=== PATIENT | female | born 1985 | race Caucasian/White ===

== ENCOUNTER 2022-06-17 09:56 | Emergency (ER) | payer OTHER, SELFPAY ==
--- NOTE | ~2022-06-17 | XR_ITS ---
EXAMINATION: XR RIBS, RIGHT CLINICAL INFORMATION: Right rib bruising status post fall on Monday. COMPARISON: None available. TECHNIQUE: 3 views of the right ribs were obtained. FINDINGS: Lungs are clear. No consolidation, pneumothorax, or pleural effusion. The cardiomediastinal silhouette and pulmonary vasculature are normal. Osseous structures are unremarkable. Ribs are intact. No fractures are identified. XR/XR ribs RT min 3V w CXR1V IMPRESSION: Unremarkable examination.
[2022-06-17 10:06] VITALS: BP 132/93; PULSE 102; RESP 18; TEMP 36.6; O2SAT 98; BMI 30.1
--- NOTE | 2022-06-17 10:41 | ED_ITS ---
HPI - Back Pain/Injury General Chief Complaint: Back Pain/Injury Stated Complaint: low back pain Time Seen by Provider: 06/17/22 10:21 Source: patient Mode of arrival: ambulatory Limitations: no limitations History of Present Illness HPI Narrative: 37 yo female healthy here with right posterior chest wall after bumping into a door on Monday. Since then pain is worsened with breathing, movement, coughing. No SOB, cough, fever, abdominal pain, vomiting. Prior to this she was having some back discomfort for weeks with no known injury or trauma. No radiation of pain. No numbness/tingling/weakness/incontinence of urine/stool, fevers, chills. MD elicited complaint: back pain Related Data Previous Rx's Medication Instructions Recorded cyclobenzaprine 10 mg tablet 10 mg PO TID PRN muscle spasm #10 06/17/22 tabs ibuprofen 600 mg tablet 600 mg PO Q6H PRN fever or pain 06/17/22 #20 tabs Allergies Allergy/AdvReac Type Severity Reaction Status Date / Time No Known Allergies Allergy Verified 06/17/22 10:06 Review of Systems Review of Systems: Yes all other systems are reviewed and are negative Constitutional: Constitutional: Reports no additional constitutional complaints, Denies body ache(s), Denies chills, Denies fever(s), Denies headache(s) and Denies weakness Eyes: Eyes: Reports no additional eye complaints and Denies change in vision ENT: Reports system reviewed and no additional complaints, except as documented, Denies dizziness, Denies headache(s), Denies nasal congestion, Denies nasal discharge and Denies neck pain Cardiovascular: Cardiovascular: Reports no additional cardiovascular compla ints, Reports chest pain, Denies leg edema and Denies dyspnea Respiratory: Respiratory: Reports no additional respiratory complaints, Denies cough and Denies dyspnea Gastrointestinal: Gastrointestinal: Reports no additional gastrointestinal complaints, Denies abdominal pain, Denies diarrhea, Denies nausea and Denies vomiting Genitourinary: Genitourinary: Reports no additional female genitourinary complaints and Denies urinary incontinence Musculoskeletal: Musculoskeletal: Reports no additional musculoskeletal complaints, Reports back pain, Denies arthralgias, Denies joint swelling, Denies neck pain, Denies numbness and Denies tingling Integumentary/Breasts: Skin/Breast: Reports system reviewed and no additional complaints, except as docu and Denies rash Neurologic: Reports system reviewed and no additional complaints, except as documented, Denies Abnormal speech present, Denies dizziness, Denies headache(s), Denies numbness, Denies tingling and Denies weakness PMFSH Past Medical History Attestation statement: The following information was validated with the patient. Source: old records reviewed and nursing notes reviewed Social History Social History Advance Directives: No Advance Directives Information Provided: No Physical Exam Vital Signs: Vital Signs: Last Vital Signs Temp 97.8 F 06/17/22 10:06 Pulse 102 H 06/17/22 10:06 Resp 18 06/17/22 10:06 BP 132/93 H 06/17/22 10:06 Pulse Ox 98 06/17/22 10:06 O2 Del Method Room Air 06/17/22 10:06 BMI result Body Mass Index 30.1 Const: General: cooperative, healthy appearing, comfortable and no acute distress Orientation/consciousness: patient oriented x3 Limitations: no limitations HEENT: Head: Yes normal to inspection Ears: hearing grossly normal bilaterally General nose exam: Normal external nose present Face and sinus: Yes normal facial exam Mouth: Normal oral and palatal mucosa present Throat: Yes posterior oropharynx normal Eyes: General: appearance normal, both eyes and all related structures Pupils: Equal, round and reactive pupils present Neck: Neck: Yes normal visual inspection Chest: Other: to the right posterior chest wall there is a small area of ecchymosis in various stages of healing with mild TTP over the chest wall. No CVAT Resp: Effort & Inspection: normal respiratory effort Auscultation: clear to auscultation bilaterally Cardio: Rate: regular rate Rhythm: regular rhythm Peripheral pulses: Peripheral pulses 2+ throughout GI: Inspection: Yes normal to inspection Palpation (GI): Soft to palpation and nontender Auscultation: normal bowel sounds Back/Spine/Pelvis: Thoracic/Lumbar Spine: thoracic and lumbar spine normal to inspection Skin: General skin exam: no rashes or lesions noted Neuro: General: patient oriented x3, no focal motor deficits and normal sensation to monofilament Cranial nerves: Yes Equal, round and reactive pupils present Cognition (Neuro): normal cognition Speech: No Abnormal speech present Gait exam (Neuro): Normal gait present Motor exam (neuro): 5/5 motor strength present throughout Extrem: General: Yes normal to inspection Course Course Course Narrative: X-ray show no fracture. Likely contusion. Patient be discharged home with NSAID and muscle relaxant. Reviewed worrisome signs and symptoms of when to return to the emergency room. Comfortable discharge home. Medical Decision Making Medical Decision Making [facility] Narrative: 37 yo female here with acute on chronic back pain/rib pain after an injury which occurred Monday. On exam ecchymosis over the right posterior chest wall with no creptitus or deformity noted. LS CTA. VSS. No AP or CVAT Will check x-rays Differential Diagnosis Differential Diagnoses: The differential diagnosis associated with the presentation includes MS, rib fracture/contusion less likely intra-abdominal injury, renal injury, PTX Independent Interpretation I performed an independent interpretation of an: Plain X-Ray Interpretation: I independently reviewed the x-ray and agree with radiologist report Radiology Impression Discussion of test interpretation with radiology: I have reviewed the radiologist's reading. Radiologist Impression: [place] [id number] XRay Report Signed Patient: Mellissa Gibson MR#: [id number] : 1985 Acct:[id number] Age/Sex: 37 / F ADM Date: 06/17/22 Loc: HO.ED Attending Dr: Ordering Physician: Trudi Daugherty MD Date of Service: 06/17/22 Procedure(s): XR ribs RT min 3V w CXR1V Accession Number(s): [id number] cc: Trudi Daugherty MD~ EXAMINATION: XR RIBS, RIGHT CLINICAL INFORMATION: Right rib bruising status post fall on Monday. COMPARISON: None available. TECHNIQUE: 3 views of the right ribs were obtained. FINDINGS: Lungs are clear. No consolidation, pneumothorax, or pleural effusion. The cardiomediastinal silhouette and pulmonary vasculature are normal. Osseous structures are unremarkable. Ribs are intact. No fractures are identified. XR/XR ribs RT min 3V w CXR1V IMPRESSION: Unremarkable examination. ? Discharge Plan Discharge Clinical Impression: Contusion of rib on right side Patient Disposition: Home, Self-Care Instructions: Contusion in Adults (ED), Rib Contusion (ED) Additional Instructions: Rest, ice, gentle stretching No heavy lifting or bending Establish a primary care doctor through your insurance company Prescriptions: New ibuprofen 600 mg tablet 600 mg PO Q6H PRN (Reason: fever or pain) Qty: 20 0RF cyclobenzaprine 10 mg tablet 10 mg PO TID PRN (Reason: muscle spasm) Qty: 10 0RF Referrals: Physician,None [Primary Care Provider] - 1 week Stand Alone Forms: Work/School Release Interventions: ED Discharge Assessment Last Done: 06/17/22 11:43 Discharge Date/Time: 06/17/22 11:45
== END 2022-06-17 11:45 | disposition home or self-care (01) ==
PROVIDERS: Emergency Provider Student in an Organized Health Care Education/Training Program
DX: R07.81 Pleurodynia (principal); M94.0 Chondrocostal junction syndrome [Tietze]; M54.50 Low back pain, unspecified
CPT/HCPCS: 71101; 99282; 99283

== ENCOUNTER 2024-08-20 10:29 | Outpatient (AMB) | payer BC, SELFPAY ==
--- NOTE | 2024-08-20 10:29 | A.OFFPC_ITS ---
Vital Signs 08/20/24 10:31 Height 5 ft 3.39 in Weight 151 lb BMI 26.4 BP 132/85 Respiration 14 Pulse 91 Pulse Source Pulse Oximeter Temp 97.7 F Temp Source Temporal Artery Scan Pulse Oximetry (%) 98 Oxygen Delivery Method Room Air Intake Visit Reasons: establish care; pilonidal cyst Efficiency Clerk Required: No Accompanied by: Self / Same As Patient Allergies No Known Allergies Allergy (Verified 08/20/24 10:44) Medication List - Last Reconciled 08/20/24 by Jenny Bustillo PA-C cephalexin 500 mg PO QID gabapentin mg PO ibuprofen 600 mg PO Q6H PRN lamotrigine 150 mg PO BID Tobacco use date assessed: 08/20/24 Dental Screening Dental Screen Date: 08/20/24 Did you have a dental visit in the last 12 months?: Yes Did you have a dental problem in the last 6 months where you did not have access to dental care?: No Was dental information given to patient?: Patient has dentist HPI establish care; pilonidal cyst HPI Details The patient is a 39-year-old female presenting to establish primary care and manage a recent pilonidal cyst. The cyst was initially treated by incision and drainage at a [facility] in [place]. Follow-up visits revealed the necessity for deeper incision and debridement, and the area has been managed for approximately one week. Despite interventions, the patient expressed concern over the wound's proximity to the spine. Recommended referral to a wound center is underway to facilitate healing. Social History - No regular primary care since [facility] due to lack of insurance. - Recent wound management has involved a ssistance from a partner. [facility] Medical History (Updated 08/20/24 @ 11:16 by Jenny Bustillo PA-C) Overweight with body mass index (BMI) of 26 to 26.9 in adult Pilonidal cyst Establishing care with new doctor, encounter for Breast cancer screening Cervical cancer screening Family History Father Throat cancer Mother No problems noted. Social History Housing: House Alcohol intake: current Alcohol intake frequency: a few times a week Alcohol type: beer Patient Tobacco Use Status: Never used Tobacco Substance Use Type: Crack/Cocaine service: No Current occupational status: employed Cognitive needs: No Hearing needs: No Vision needs: Yes (rx glasses) Questionnaire PHQ-9 Over the last 2 weeks, how often have you been bothered by any of the following problems? 1. Little interest or pleasure in doing things: not at all 2. Feeling down, depressed, or hopeless: not at all 3. Trouble falling or staying asleep, or sleeping too much: not at all 4. Feeling tired or having little energy: not at all 5. Poor appetite or overeating: not at all 6. Feeling bad about yourself - or that you are a failure or have let yourself or your family down: not at all 7. Trouble concentrating on things, such as reading the newspaper or watching television: not at all 8. Moving or speaking so slowly that other people could have noticed. Or the opposite - being so fidgety or restless that you have been moving around a lot more than usual: not at all 9. Thoughts that you would be better off or of hurting yourself in some way: not at all Total score: 0 Depression Screening Interpretation: Negative Depression Screening Done: Yes 33358 - PHQ-9 Billing: Yes Source: Developed by Drs. Julius Maria, Evelyn Dalton, René Farnsworth and colleagues, with an educational van from [employer]. Thrive Questionnaire Date Thrive assessed: 08/20/24 I am a: Patient What is your living situation today?: I have a steady place to live Within the past 12 months, did the food you bought not last and you didn't have the money to get more?: Never true Within the past 12 months, did you worry whether your food would run out before you got money to buy more?: Never true Do you have trouble paying for medicines?: No Do you have trouble getting transportation to medical appointments?: No Do you have trouble paying your heating and electricity bill?: No Do you have trouble taking care of your child, family member or friend?: No Do you have trouble with day-to-day activities such as bathing, preparing meals, shopping, managing finances, etc.?: No Are you currently unemployed and looking for a job?: No Are you interested in more education?: No Please select the resources that you would like help with: None THRIVE Score: 0 AUDIT C Alcohol Use Questionnaire (AUDIT-C) 1. How often do you have a drink containing alcohol?: 4 or more times a week 2. How many drinks containing alcohol do you have on a typical day when you are drinking?: 1 or 2 3. How often do you have six or more drinks on one occasion?: Never Total Score: 4 Score Reviewed/Action Taken: No CHARLES-7 AMB Questionnaire CHARLES-7 Date CHARLES - 7 assessed: 08/20/24 Feeling nervous, anxious, or on edge: 0 = Not at all Not being able to stop or control worryin = Not at all Worrying too much about different things: 0 = Not at all Trouble relaxin = Not at all Being so restless that it is hard to sit still: 0 = Not at all Becoming easily annoyed or irritable: 0 = Not at all Feeling afraid as if something awful might happen: 0 = Not at all Total CHARLES-7 score (0-4 normal; 5-9 mild; 10-14 moderate; 15-21 severe): 0 Source: Developed by Drs. Julius Maria, Evelyn Dalton, René Farnsworth and colleagues, with an educational van from [employer]. CHARLES-7 Assessment Billing CHARLES-7 Assessment Tool: CHARLES-7 Assessment 37694 Review of Systems Const Details: - Skin: Reports a pilonidal cyst, with issues related to wound packing and potential infection. - No other symptoms reported or denied. Physical exam (Primary Care) Vital Signs: Last Vital Signs Temp 97.7 F 08/20/24 10:31 Pulse 126 H 08/20/24 10:31 Resp 14 08/20/24 10:31 BP 132/85 08/20/24 10:31 Pulse Ox 98 08/20/24 10:31 Oxygen Delivery Method Room Air 08/20/24 10:31 Care Plan Goal for BP management: <140/90 at Goal BMI result Body Mass Index 26.4 BMI Assessment/Plan discussion: High BMI High, discussed plan: lifestyle, weight reduction, dietary, physical activity and alcohol moderation Tobacco/Smoking Status: Tobacco use Status Tobacco use date assessed 08/20/24 08/20/24 10:38 Patient Tobacco Use Status Never used Tobacco 08/20/24 10:38 PHQ-9: PHQ-9 Score PHQ-9: Total score 0 08/20/24 10:38 Depression Screening Interpretation: Negative Thrive Assessment: Date of Thrive Assessment Date Thrive assessed 08/20/24 08/20/24 10:38 Const Other: Appearance: Alert. Oriented X3. No acute distress. Head: Normal external exam. Normocephalic. Atraumatic. Eyes: Pupils are equal, round, and reactive to light. Extraocular movements intact. Conjunctiva and sclera normal. Eyelids normal. Ears: External auditory canal normal. Tympanic membranes normal. Throat: Pharynx normal. Uvula midline. Moist mucous membranes. Neck: Normal inspection. Neck supple. Full range of motion. No adenopathy. Thyroid Normal. No meningeal signs. No neck mass noted. Cardiovascular: Normal heart rate and rhythm. Heart sound normal. No murmurs noted. Pulses normal throughout. Respiratory: No respiratory distress. Painless inspiration. Breath sounds normal. No wheezes/rales/rhonchi noted. Chest nontender. No accessory muscle usage noted or decreased air movement noted. Abdomen: Soft and nontender. No distention noted. No organomegaly noted. Back: No costovertebral angle tenderness. Full range of motion noted. Skin: Skin warm and dry. Normal skin color. Normal skin turgor. Pilonidal wound to right buttocks. No advancing erythema, streaking, crepitus, purulent drainage, foul odor or signs of active infection. No additional rashes/lesions/lacerations noted. Extremities: No lower extremity edema. Extremities exhibit normal range of motion. Extremities nontender. Neuro: Oriented X 3. No motor deficit. No sensory deficit. Reflexes normal. Results Reviewed Results Reviewed: Pilonidal wound was cleaned with normal saline. Nonviable tissue, slough, biofilm was removed. Bacitracin ointment was applied. Nonadherent dressing with gauze overlying and tape applied. Coding Level of Care Code New Pt Level 4 (45975) Complex EM visit Add On G2211 Diagnoses Establishing care with new doctor, encounter for Z76.89 Pilonidal cyst L05.91 Breast cancer screening Z12.39 Cervical cancer screening Z12.4 Overweight with body mass index (BMI) of 26 to 26.9 in adult E66.3; Z68.26 Additional Codes PHQ-9 - 42807 - PHQ-9 Billing: Yes ([id number]) CHARLES-7 Assessment Billing - CHARLES-7 Assessment Tool: CHARLES-7 Assessment 11096 ([id number]) Time Spent (min) 50 Assessment & Plan Assessment & Plan (1) Establishing care with new doctor, encounter for: Code(s): Z76.89 - Persons encountering health services in other specified circumstances Category: Medical Plan: Establish primary care and complete overdue screenings including Pap smear and Mammogram. Complete fasting blood work for comprehensive health assessment. (2) Pilonidal cyst: Code(s): L05.91 - Pilonidal cyst without abscess Category: Medical Plan: Continue wound care, use antibiotic ointments, and refer to a wound center. Continue Keflex q.i.d. as prescribed by urgent Care. Maintain outpatient care to monitor and prevent recurrent infections by advising pressure relief strategies. (3) Breast cancer screening: Code(s): Z12.39 - Encounter for other screening for malignant neoplasm of breast Category: Medical Plan: Patient will be referred for mammogram for breast cancer screening. (4) Cervical cancer screening: Code(s): Z12.4 - Encounter for screening for malignant neoplasm of cervix Category: Medical Plan: Patient will refer to biology department chair for cervical cancer screening. (5) Overweight with body mass index (BMI) of 26 to 26.9 in adult: Code(s): E66.3 - Overweight; Z68.26 - Body mass index [BMI] 26.0-26.9, adult Category: Medical Plan: Patient has improved diet and exercise regimen. Condition is chronic and stable continue to monitor. Plan Plan Patient was informed and verbally consented to the use of an ambient scribe for clinic note documentation during this visit. 1. Pilonidal Cyst Continue wound care, use antibiotic ointments, and refer to a wound center. Maintain outpatient care to monitor and prevent recurrent infections by advising pressure relief strategies. 2. Wellness And Preventative Care Establish primary care and complete overdue screenings including Pap smear and Mammogram. Complete fasting blood work for comprehensive health assessment. I discussed the management plan with the patient, focusing on the pilonidal cyst and the need for continued care at a wound center. We reviewed the risks of not managing the wound appropriately, including possible infection due to proximity to the spine. I emphasized the importance of pressure relief from the site and maintaining daily dressing changes. For wellness, the need for cervical and breast cancer screenings was discussed, along with the benefit of primary care follow-up. Orders: Orders C Reactive Protein Today Z00.00 - Encounter for general adult medical examination without abnormal findings Liver Panel Today Z00.00 - Encounter for general adult medical examination without abnormal findings Magnesium Today Z00.00 - Encounter for general adult medical examination without abnormal findings Vitamin B12 and Folate Today Z00.00 - Encounter for general adult medical examination without abnormal findings MM screening mammo BI Today Z12.31 - Encounter for screening mammogram for malignant neoplasm of breast Complete Blood Count Auto Diff Today Z00.00 - Encounter for general adult medical examination without abnormal findings Comprehensive [place]. Panel Fast Today Z00.00 - Encounter for general adult medical examination without abnormal findings Hemoglobin A1c Today Z00.00 - Encounter for general adult medical examination without abnormal findings Lipid Panel Today Z00.00 - Encounter for general adult medical examination w ithout abnormal findings Vitamin D 25-OH Total Today Z00.00 - Encounter for general adult medical examination without abnormal findings TSH reflex Free T4 Today Z00.00 - Encounter for general adult medical examination without abnormal findings Referrals Wound Care Referral L05.91 - Pilonidal cyst without abscess [employer] Referral Z12.39 - Encounter for other screening for malignant neoplasm of breast, Z12.4 - Encounter for screening for malignant neoplasm of cervix, Z76.89 - Persons encountering health services in other specified circumstances Medications: New mupirocin 2% 1 appl topical DAILY 22 grams 2RF Discontinued cyclobenzaprine Discontinued Reason: Patient no longer taking 10 mg PO TID PRN 10 tabs 0RF muscle spasm Patient Instructions: - Continue daily wound care with topical antibiotic ointment. - Avoid applying pressure on the wound by sitting or laying directly on it. - Contact the wound center for an appointment within a week. - Schedule and attend referrals for Pap smear and Mammogram. - Fast and complete blood tests as instructed. - Report any signs of infection or complications immediately.
[2024-08-20 10:31] VITALS: BP 132/85; PULSE 91; RESP 14; TEMP 36.5; O2SAT 98; BMI 26.4
== END 2024-08-20 11:13 | disposition home or self-care (01) ==
LOC: HO.HMCSH 10:29
PROVIDERS: PCP Physician Assistant Medical; Visit Provider Physician Assistant Medical
DX: Z76.89 Persons encountering health services in other specified circumstances (principal); L05.91 Pilonidal cyst without abscess; Z12.39 Encounter for other screening for malignant neoplasm of breast; Z12.4 Encounter for screening for malignant neoplasm of cervix; E66.3 Overweight; Z68.26 Body mass index [BMI] 26.0-26.9, adult

== ENCOUNTER → 2024-08-20 10:29 | Outpatient (BNVA) | payer BC, SELFPAY | PROVIDERS: PCP Physician Assistant Medical; Visit Provider Physician Assistant Medical | DX: L05.91 Pilonidal cyst without abscess (principal); E66.3 Overweight; Z68.26 Body mass index [BMI] 26.0-26.9, adult; Z76.89 Persons encountering health services in other specified circumstances | CPT/HCPCS: 96127 ==

== ENCOUNTER 2024-08-29 08:04 | Outpatient (RCR) | payer BC, SELFPAY | END 2024-09-16 13:55 | disposition home or self-care (01) | LOC: HO.WCC 08:04 | PROVIDERS: Visit Provider Surgery | DX: L05.91 Pilonidal cyst without abscess (principal); Z79.2 Long term (current) use of antibiotics | CPT/HCPCS: 99213 ==

== ENCOUNTER 2024-09-09 10:33 | Emergency (ER) | payer BC, SELFPAY ==
[2024-09-09 10:56] VITALS: BP 117/63; PULSE 81; RESP 18; TEMP 36.8; O2SAT 99; BMI 28.1
--- NOTE | 2024-09-09 12:52 | ED.GENADULT ---
HPI - General Adult General Chief complaint: Skin/Abscess/Foreign Body Stated complaint: quest abscess on abd Time Seen by Provider: 09/09/24 13:55 Source: patient, RN notes reviewed and old records reviewed History of Present Illness ED Provider: Elizabeth Downs PA-C HPI narrative: 39-year-old female with a past medical history pilonidal cyst, presenting to the ED complaining of suspected abscess to right abdominal region/side x few days and pilonidal cyst x 1 week. Admits was seen at urgent care about 1 month ago and had pilonidal cyst that was drained, finished course of Keflex with relief, however area recollected last week and open/popped on its own. Denies active drainage, fever, chills, difficulty having BUN, bloody BMs, dysuria, melena, abdominal pain Related Data Home Medications ?Medication ?Instructions ?Recorded ?Confirmed cephalexin 500 mg capsule 500 mg PO QID 08/20/24 08/20/24 gabapentin 100 mg capsule mg PO 08/20/24 08/20/24 lamotrigine 150 mg tablet 150 mg PO BID 08/20/24 08/20/24 Previous Rx's ?Medication ?Instructions ?Recorded ibuprofen 600 mg tablet 600 mg PO Q6H PRN fever or pain 06/17/22 #20 tabs mupirocin 2 % topical ointment 1 appl topical DAILY #22 grams 08/20/24 doxycycline hyclate 100 mg tablet 100 mg PO BID 7 days #14 tabs 09/09/24 Allergies Allergy/AdvReac Type Severity Reaction Status Date / Time No Known Allergies Allergy Verified 09/09/24 10:57 Review of Systems Review of Systems: Yes all other systems are reviewed and are negative Constitutional: Constitutional: Reports as per [facility] Past Medical History Attestation statement: The following information was validated with the patient. Source: old records reviewed Medical History Overweight with body mass index (BMI) of 26 to 26.9 in adult Pilonidal cyst Establishing care with new doctor, encounter for Breast cancer screening Cervical cancer screening Family History Family History Father Throat cancer Mother No problems noted. Social History Social History Housing: House Alcohol intake: current Alcohol intake frequency: a few times a week Alcohol type: beer Patient Tobacco Use Status: Never used Tobacco Substance Use Type: Crack/Cocaine Advance Directives: No Advance Directives Information Provided: Yes Patient : No service: No Current occupational status: employed Cognitive needs: No Hearing needs: No Vision needs: Yes (rx glasses) Physical Exam ED Vital Signs: Vital Signs - 24 hr 09/09/24 10:56 09/09/24 13:34 09/09/24 14:40 Temperature 98.3 F 98 F 98 F Pulse Rate 81 73 73 Respiratory Rate 18 14 14 Blood Pressure 117/63 140/84 H 140/84 H Pulse Oximetry 99 97 97 Oxygen Delivery Method Room Air Room Air Room Air BMI result Body Mass Index 28.1 Const General: cooperative, healthy appearing and no acute distress Orientation/consciousness: patient oriented x3 Limitations: no limitations HENMT Head: Yes normal to inspection and Yes atraumatic Ears: hearing grossly normal bilaterally General nose exam: Normal external nose present Face and sinus: Yes normal facial exam Eyes General: appearance normal, both eyes and all related structures EOM: EOMs intact bilaterally Neck Neck: Yes normal visual inspection and Yes no meningeal signs Resp Effort & Inspection: normal respiratory effort and no respiratory distress Cardio Rate: regular rate GI Inspection: Yes normal to inspection Palpation (GI): Soft to palpation, nontender, no guarding and not rigid General: Yes no CVA tenderness Back/Spine/Pelvis Back: no CVA tenderness Skin Other: + indurated abscess noted to RUQ/lower ribs w/surrounding erythema/cellulitis. Mildly tender to palpation. No pointing or fluctuance. No streaking. + multiple small healing abscesses/cyst to buttock region. One with small induration. No fluctuance/pointing. No surrounding erythema. No crepitus. No perianal/perirectal involvement. Rashes: no rashes Neuro General: patient oriented x3, tone normal and no meningeal signs Cranial nerves: Yes CN's II-XII intact bilaterally Gait exam (Neuro): Normal gait present Extrem General: Yes normal to inspection Course Course Course Narrative: RME performed by Hien Carr PA-C. Patient is a 39 year old assigned female at presenting to the emergency department with a right abdominal abscess, right sided pilonidal, and left sided groin abscess. Patient states that she is having issues with multiple abscesses that are worsening. Detailed physical exam and review of systems are deferred to the digital asset specialist. Labs ordered. Patient placed back in the waiting room pending room availability and results. -labs reassuring. Mild elevation in ESR/CRP Results discussed with patient including worrisome signs and symptoms and strict return precautions, and when to return to the emergency department. They verbalized understanding and feel safe for discharge at this time. Medical Decision Making Medical Decision Making [facility] Narrative: 39-year-old female with a past medical history pilonidal cyst, presenting to the ED complaining of suspected abscess to right abdominal region/side x few days and pilonidal cyst x 1 week. On exam vital signs stable, NAD, nontoxic appearing, physical exam as noted above. Abscesses not requiring I&D at this time. One with surrounding cellulitis, 2 with induration. No perianal/perirectal involvement, no evidence of Faisal's gangrene. Abdomen is soft and nontender. Plan: P.o. antibiotics, general surgery/PCP follow-up Please refer to course for remaining clinical decision making, interpretation of labs/imaging results, and discussions with consultants and/or family members. Differential Diagnosis Differential Diagnoses: The differential diagnosis associated with the presentation includes As above Admission/Observation Consideration of admission/observation: Escalation of care including admission/observation considered Lab Data [facility] Lab Attestation statement: I reviewed the patient's lab results. 09/09/24 13:16 09/09/24 13:16 Labs: Lab Results 09/09/24 Range/Units 13:16 WBC 11.2 H (4.8-10.8) X10*3/uL RBC 3.90 L (4.20-5.50) X10*6/uL Hgb 12.9 (12.0-16.0) g/dl Hct 37.4 (37.0-47.0) % MCV 95.9 (80.0-98.0) fL MCH 33.1 H (27.0-33.0) pg MCHC 34.5 (31.0-35.0) g/dl RDW 12.9 (11.0-16.0) % Plt Count 380 (160-400) X10*3/uL MPV 8.7 L (9.4-12.3) fL Immature Gran % (Auto) 0.4 (0.0-0.4) % Neut % (Auto) 67.5 (45-73) % Lymph % (Auto) 21.6 (20-40) % Bond % (Auto) 7.4 (2-11) % Eos % (Auto) 2.8 (0-4) % Baso % (Auto) 0.3 (0-2) % Lymph # (Auto) 2.4 (1.2-4.9) X10*3/uL Bond # (Auto) 0.8 (0.1-1.2) X10*3/uL Eos # (Auto) 0.3 (0.0-0.4) X10*3/uL Baso # (Auto) 0.0 (0.0-0.2) X10*3/uL Abs Immat Gran (auto) 0.05 H (0.00-0.03) X10*3/uL Absolute Neuts (auto) 7.6 (2.0-8.3) x10*3/uL Absolute Nucleated RBC 0.000 (0.0-0.012) X10*3/uL Nucleated RBC % (auto) 0.0 (0.0-0.2) /100WBC ESR 25 H (0-20) MM/HR Sodium 137 (135-145) mmol/L Potassium 3.8 (3.3-5.1) mmol/L Chloride 104 (96-108) mmol/L Carbon Dioxide 25 (22-29) mmol/L Anion Gap 12 (12-20) BUN 7 L (9-16) mg/dL Creatinine 0.66 (0.5-1.4) mg/dL Estim Creat Clear Calc 106.6 Estimated GFR > 60 Random Glucose 88 (60-115) mg/dL Calcium 9.2 (8.4-10.2) mg/dL Magnesium 1.9 (1.6-2.6) mg/dL Total Bilirubin 0.6 (0.0-1.0) mg/dL AST 16 (5-31) U/L ALT 21 (0-31) U/L Alkaline Phosphatase 66 (39-117) U/L C-Reactive Protein 4.76 H (< or = 0.50) mg/dL Total Protein 7.3 (6.5-8.0) g/dL Albumin 4.4 (3.5-5.0) g/dL External Record Review External record reviewed: Inpatient record, Office record, Outpatient record, Prior outpatient labs, Prior outpatient radiology, Primary care record and Outside ED record Tests considered The following testing was considered but not selected: As above Prescription Management I considered prescription management with: Pain Medication and Antibiotic Chronic Conditions Patient?s care impacted by: Other Social Determinants Patient?s care significantly limited by Social Determinants of Health including: Other Social Determinant of Health Discharge Plan Discharge Clinical Impression: Abscess of skin or subcutaneous tissue Patient Disposition: Home, Self-Care Instructions: Abscess (ED), Abscess Follow-up (ED) Additional Instructions: Your blood work is reassuring Your abscesses do not require drainage at this time. Doxycycline as an antibiotic please take as prescribed until completion Apply warm compresses to abscesses/cyst If areas begins to grow, redness is spreading, or they are pointing/soft or you have fever return to the ED immediately You should follow up with General surgery/your PCP Please be re-evaluated in 2-3 days Prescriptions: New doxycycline hyclate 100 mg tablet 100 mg PO BID 7 Days Qty: 14 0RF No Action ibuprofen 600 mg tablet 600 mg PO Q6H PRN (Reason: fever or pain) Qty: 20 0RF cephalexin 500 mg capsule 500 mg PO QID gabapentin 100 mg capsule PO lamotrigine 150 mg tablet 150 mg PO BID mupirocin 2 % ointment 1 appl topical DAILY Qty: 22 2RF Referrals: [facility] [Provider Group] - 1 week Jenny Bustillo PA-C [Primary Care Provider] - 3 days Interventions: ED Discharge Assessment Last Done: 09/09/24 14:40 Discharge Date/Time: 09/09/24 14:45 Print Language: Swiss
[2024-09-09 13:21] LABS: MANUAL DIFF FLAG NO
[2024-09-09 13:22] LABS: Basophils Percent Auto 0.3 % (0-2); Eosinophils Absolute Auto 0.3 X10*3/uL (0.0-0.4); Eosinophils Percent Auto 2.8 % (0-4); Hematocrit 37.4 % (37.0-47.0); Hemoglobin 12.9 g/dl (12.0-16.0); Imm Gran Abs Auto 0.05 X10*3/uL (0.00-0.03); Imm Gran Pct Auto 0.4 % (0.0-0.4); Lymphocytes Absolute Auto 2.4 X10*3/uL (1.2-4.9); Lymphocytes Percent Auto 21.6 % (20-40); Mean Corpuscular HGB Conc 34.5 g/dl (31.0-35.0); Mean Corpuscular Hemoglobin 33.1 pg (27.0-33.0); Mean Corpuscular Volume 95.9 fL (80.0-98.0); Mean Platelet Volume 8.7 fL (9.4-12.3); Monocytes Absolute Auto 0.8 X10*3/uL (0.1-1.2); Monocytes Percent Auto 7.4 % (2-11); Neutrophils Absolute Auto 7.6 x10*3/uL (2.0-8.3); Neutrophils Percent Auto 67.5 % (45-73); Platelet Count 380 X10*3/uL (160-400); Red Cell Distribution Width 12.9 % (11.0-16.0); White Blood Count 11.2 X10*3/uL (4.8-10.8)
[2024-09-09 13:34] VITALS: BP 140/84; PULSE 73; RESP 14; TEMP 36.6; O2SAT 97
[2024-09-09 13:41] LABS: Alanine Aminotransferase 21 U/L (0-31); Albumin Level 4.4 g/dL (3.5-5.0); Alkaline Phosphatase 66 U/L (39-117); Anion Gap 12 (12-20); Aspartate Amino Transferase 16 U/L (5-31); Bilirubin Total 0.6 mg/dL (0.0-1.0); Blood Urea Nitrogen 7 mg/dL (9-16); C Reactive Protein 4.76 mg/dL (< or = 0.50); Calcium 9.2 mg/dL (8.4-10.2); Carbon Dioxide 25 mmol/L (22-29); Chloride 104 mmol/L (96-108); Creatinine Clr Calc Pharmacy 106.6; Estimated Glomerular Filt Rate > 60; Glucose Random 88 mg/dL (60-115); Magnesium 1.9 mg/dL (1.6-2.6); Potassium 3.8 mmol/L (3.3-5.1); Sodium 137 mmol/L (135-145); Total Protein 7.3 g/dL (6.5-8.0)
[2024-09-09 14:02] LABS: Erythrocyte Sedimentation Rate 25 MM/HR (0-20)
[2024-09-09 14:40] VITALS: BP 140/84; PULSE 73; RESP 14; TEMP 36.6; O2SAT 97
== END 2024-09-09 14:45 | disposition home or self-care (01) ==
PROVIDERS: Physician Assistant Medical; Emergency Provider Emergency Medicine Emergency Medical Services; PCP Physician Assistant Medical
DX: L02.211 Cutaneous abscess of abdominal wall (principal)
CPT/HCPCS: 36415; 80053; 83735; 85025; 85652; 86140; 99283; 99284

== ENCOUNTER 2024-09-13 10:55 | Outpatient (AMB) | payer BC, SELFPAY ==
[2024-09-13 10:52] VITALS: BP 140/90; PULSE 94; O2SAT 100; BMI 28.7
--- NOTE | 2024-09-13 10:52 | MHC.PC.OV ---
Vital Signs 09/13/24 10:52 Height 5 ft 3 in Weight 162 lb 4 oz BMI 28.7 BP 140/90 H Blood Pressure Location Rt brachial Position Sitting Pulse 94 Pulse Source Pulse Oximeter Pulse Oximetry (%) 100 Oxygen Delivery Method Room Air Intake Visit Reasons: Abscess Allergies No Known Allergies Allergy (Verified 09/13/24 12:04) Medication List - Last Reconciled 09/13/24 by Jenny Bustillo PA-C acetaminophen ER 1,300 mg (2 x 650 mg) PO Q8H cephalexin 500 mg PO Q6H 10 days doxycycline hyclate 100 mg PO BID 7 days gabapentin mg PO ibuprofen 800 mg PO Q8H lamotrigine 150 mg PO BID mupirocin 2% 1 appl topical DAILY mupirocin 2% 1 appl topical BID oxycodone 5 mg PO Q8H PRN Tobacco use date assessed: 09/13/24 Dental Screening Dental Screen Date: 09/13/24 Did you have a dental visit in the last 12 months?: Yes Did you have a dental problem in the last 6 months where you did not have access to dental care?: No Was dental information given to patient?: Patient has dentist HPI Abscess HPI Details The patient is a 39-year-old female presenting with an abdominal wall abscess. The issue began approximately a week and a half ago, initially perceived as a spider bite due to a small pinch and a red port heiden around it. Over the following days, the area became significantly larger and harder, prompting a visit to the emergency room on 09/09/2024 where it was identified as an abscess. The emergency department noted that the abscess was too hard to drain at that time and advised follow-up care. The patient reports significant pain associated with the abscess, which has prevented her from attending work since Monday. The patient was prescribed doxycycline and advised to follow up with her primary care provider for further management. [facility] Medical History Abdominal wall abscess Overweight with body mass index (BMI) of 26 to 26.9 in adult Pilonidal cyst Establishing care with new doctor, encounter for Breast cancer screening Cervical cancer screening Family History Father Throat cancer Mother No problems noted. Social History Housing: House Alcohol intake: current Alcohol intake frequency: a few times a week Alcohol type: beer Patient Tobacco Use Status: Never used Tobacco Substance Use Type: Crack/Cocaine service: No Current occupational status: employed Cognitive needs: No Hearing needs: No Vision needs: Yes (rx glasses) Questionnaire PHQ-9 Over the last 2 weeks, how often have you been bothered by any of the following problems? 1. Little interest or pleasure in doing things: not at all 2. Feeling down, depressed, or hopeless: not at all 3. Trouble falling or staying asleep, or sleeping too much: not at all 4. Feeling tired or having little energy: not at all 5. Poor appetite or overeating: not at all 6. Feeling bad about yourself - or that you are a failure or have let yourself or your family down: not at all 7. Trouble concentrating on things, such as reading the newspaper or watching television: not at all 8. Moving or speaking so slowly that other people could have noticed. Or the opposite - being so fidgety or restless that you have been moving around a lot more than usual: not at all 9. Thoughts that you would be better off or of hurting yourself in some way: not at all Total score: 0 Depression Screening Interpretation: Negative Depression Screening Done: Yes 06300 - PHQ-9 Billing: Yes Source: Developed by Drs. Julius Maria, Evelyn Dalton, René Farnsworth and colleagues, with an educational van from [employer] Thrive Questionnaire Date Thrive assessed: 08/20/24 I am a: Patient What is your living situation today?: I have a steady place to live Within the past 12 months, did the food you bought not last and you didn't have the money to get more?: Never true Within the past 12 months, did you worry whether your food would run out before you got money to buy more?: Never true Do you have trouble paying for medicines?: No Do you have trouble getting transportation to medical appointments?: No Do you have trouble paying your heating and electricity bill?: No Do you have trouble taking care of your child, family member or friend?: No Do you have trouble with day-to-day activities such as bathing, preparing meals, shopping, managing finances, etc.?: No Are you currently unemployed and looking for a job?: No Are you interested in more education?: No Please select the resources that you would like help with: None THRIVE Score: 0 AUDIT C Alcohol Use Questionnaire (AUDIT-C) 1. How often do you have a drink containing alcohol?: 4 or more times a week 2. How many drinks containing alcohol do you have on a typical day when you are drinking?: 1 or 2 3. How often do you have six or more drinks on one occasion?: Never Total Score: 4 Score Reviewed/Action Taken: No CHARLES-7 AMB Questionnaire CHARLES-7 Date CHARLES - 7 assessed: 08/20/24 Feeling nervous, anxious, or on edge: 0 = Not at all Not being able to stop or control worryin = Not at all Worrying too much about different things: 0 = Not at all Trouble relaxin = Not at all Being so restless that it is hard to sit still: 0 = Not at all Becoming easily annoyed or irritable: 0 = Not at all Feeling afraid as if something awful might happen: 0 = Not at all Total CHARLES-7 score (0-4 normal; 5-9 mild; 10-14 moderate; 15-21 severe): 0 Source: Developed by Drs. Julius Maria, Evelyn Dalton, René Farnsworth and colleagues, with an educational van from [employer] CHARLES-7 Assessment Billing CHARLES-7 Assessment Tool: CHARLES-7 Assessment 37683 Review of Systems Const Details: - Gastrointestinal: Reports abdominal pain and swelling in the area of the abscess. - General: Denies fever or chills. Physical exam (Primary Care) Vital Signs: Last Vital Signs Pulse 94 09/13/24 10:52 BP 140/90 H 09/13/24 10:52 Pulse Ox 100 09/13/24 10:52 Oxygen Delivery Method Room Air 09/13/24 10:52 BMI result Body Mass Index 28.7 Tobacco/Smoking Status: Tobacco use Status Tobacco use date assessed 09/13/24 09/13/24 10:53 Patient Tobacco Use Status Never used Tobacco 09/13/24 10:53 PHQ-9: PHQ-9 Score PHQ-9: Total score 0 09/13/24 10:53 Depression Screening Interpretation: Negative Thrive Assessment: Date of Thrive Assessment Date Thrive assessed 08/20/24 09/13/24 10:53 Const Other: Appearance: Alert. Oriented X3. No acute distress. Head: Normal external exam. Normocephalic. Atraumatic. Eyes: Pupils are equal, round, and reactive to light. Extraocular movements intact. Conjunctiva and sclera normal. Eyelids normal. Throat: Pharynx normal. Uvula midline. Moist mucous membranes. Neck: Normal inspection. Neck supple. Full range of motion. Cardiovascular: Normal heart rate and rhythm. Heart sound normal. No murmurs noted. Pulses normal throughout. Respiratory: No respiratory distress. Painless inspiration. No accessory muscle usage noted. Abdomen: Abscess noted on the right upper side of the abdominal wall. Otherwise the rest of the abdomen is Soft and nontender otherwise. Bowel sounds normal in all 4 quadrants. No distention noted. No organomegaly noted. Back: Full range of motion noted. Skin: Skin warm and dry. Normal skin color. Normal skin turgor. No rashes/lesions/lacerations noted. Extremities: Extremities exhibit normal range of motion. Office Procedures I&D Drain Details: Patient with abdominal wall abscess to the right upper abdomen. Wound was cleaned with normal saline. Topical lidocaine and injectable lidocaine was given a proximally 6 mL of injectable lidocaine. Patient tolerated lidocaine well no complications. Incision with 11 in scalpel superficially. Moderate amount of purulent drainage with scant bloody drainage. No packing available therefore unable to pack at this time. Topical antibiotic bacitracin was utilize. Nonadherent dressing. Gauze dressing was placed. Along with tape on the gauze. Patient tolerated procedure well. No complications. Minimal blood with incision and drainage procedure. Verbal consent was given by the patient. Patient alert and oriented x3. Patient walked out without any complications. Xylocaine MPF was utilized 1%. 2 mL. 1- Lot/expiration was [id number] with the expiration date of 08/20 the item number is 3 [id number] 5. There is an also a number that is [id number]. 2 - lot/expiration was [id number] with the expiration 07/21 the item number is 3 space [id number] 0 4 space 5. There is also a number that is [id number]. 3- 3rd vial that was utilize loss/exploration was [id number] with expiration 08/20 with the item number is 3 space [id number]. There is also a number that is [id number] . 16666-[place] of Skin Abscess, complex All charges added?: Procedure code (CPT) selection complete Coding Level of Care Code Est Pt Level 4 (16634) Complex EM visit Add On G2211 Diagnoses Abdominal wall abscess L02.211 CPT Codes I&D Drain - Drain 2: 95903-Fzoliysr of Skin Abscess, complex ([id number]) Additional Codes CHARLES-7 Assessment Billing - CHARLES-7 Assessment Tool: CHARLES-7 Assessment 90086 ([id number]) PHQ-9 - 29881 - PHQ-9 Billing: Yes ([id number]) Time Spent (min) 60 Assessment & Plan Assessment & Plan (1) Abdominal wall abscess: Code(s): L02.211 - Cutaneous abscess of abdominal wall Category: Medical Plan: The patient will continue on doxycycline and has been prescribed additional antibiotics, including Keflex, to manage the infection. Pain management will include alternating doses of Motrin and Tylenol, with oxycodone prescribed for severe pain. The patient is advised to change the dressing twice daily and to avoid showering directly on the wound to prevent infection. A follow-up appointment is scheduled for Monday, with a referral to a wound clinic if necessary. Condition is new will reassess on Monday. Plan Plan Patient was informed and verbally consented to the use of an ambient scribe for clinic note documentation during this visit. 1. Abdominal Abscess The patient will continue on doxycycline and has been prescribed additional antibiotics, including Keflex, to manage the infection. Pain management will include alternating doses of Motrin and Tylenol, with oxycodone prescribed for severe pain. The patient is advised to change the dressing twice daily and to avoid showering directly on the wound to prevent infection. A follow-up appointment is scheduled for Monday, with a referral to a wound clinic if necessary. I discussed with the patient the diagnosis of an abdominal abscess and the importance of continuing antibiotic therapy with doxycycline and Keflex. We reviewed the pain management plan, including the use of Motrin, Tylenol, and oxycodone as needed. I advised the patient on wound care, emphasizing the need to change dressings twice daily and avoid direct water exposure to the wound. A follow-up appointment was scheduled for Monday, with a potential referral to a wound clinic if the condition does not improve. Orders: Referrals Wound Care Referral L02.211 - Cutaneous abscess of abdominal wall Medications: New cephalexin 500 mg PO Q6H 40 caps 0RF 10 days ibuprofen 800 mg PO Q8H 20 tabs 0RF oxycodone Partial Fill upon patient request. 5 mg PO Q8H PRN 20 tabs 0RF pain mupirocin 2% 1 appl topical BID 22 grams 1RF acetaminophen ER 1,300 mg (2 x 650 mg) PO Q8H 20 tabs 0RF Patient Instructions: - Continue taking doxycycline and start Keflex as prescribed. - Alternate between Motrin and Tylenol for pain management, and use oxycodone if needed. - Change the wound dressing twice daily and avoid getting the wound wet. - Return for a follow-up appointment on Monday.
== END 2024-09-13 11:38 | disposition home or self-care (01) ==
LOC: HO.HMCSH 10:55
PROVIDERS: PCP Physician Assistant Medical; Visit Provider Physician Assistant Medical
DX: L02.211 Cutaneous abscess of abdominal wall (principal)

== ENCOUNTER → 2024-09-13 10:55 | Outpatient (BNVA) | payer BC, SELFPAY | PROVIDERS: PCP Physician Assistant Medical; Visit Provider Physician Assistant Medical | DX: L02.211 Cutaneous abscess of abdominal wall (principal); Z13.31 Encounter for screening for depression | CPT/HCPCS: 10060; 10061; 96127 ==

== ENCOUNTER 2024-09-16 10:26 | Outpatient (AMB) | payer BC, SELFPAY ==
--- NOTE | 2024-09-16 10:31 | A.OFFPC_ITS ---
Vital Signs 09/16/24 10:32 Height 5 ft 3.39 in Weight 158 lb 4 oz BMI 27.7 BP 130/86 Blood Pressure Location Lt brachial Position Sitting Respiration 20 Pulse 85 Pulse Source Pulse Oximeter Temp 97.9 F Temp Source Temporal Artery Scan Pulse Oximetry (%) 98 Oxygen Delivery Method Room Air Intake Visit Reasons: wound check [employer] Supervisor Required: No Accompanied by: Self / Same As Patient Allergies No Known Allergies Allergy (Verified 09/16/24 11:25) Medication List - Last Reconciled 09/16/24 by Jenny Bustillo PA-C acetaminophen ER 1,300 mg (2 x 650 mg) PO Q8H betamethasone valerate 0.1% 1 appl topical TID PRN cephalexin 500 mg PO Q6H 10 days gabapentin mg PO ibuprofen 800 mg PO Q8H lamotrigine 150 mg PO BID mupirocin 2% 1 appl topical DAILY mupirocin 2% 1 appl topical BID oxycodone 5 mg PO Q8H PRN Tobacco use date assessed: 09/13/24 Dental Screening Dental Screen Date: 09/13/24 Did you have a dental visit in the last 12 months?: Yes Did you have a dental problem in the last 6 months where you did not have access to dental care?: No Was dental information given to patient?: Patient has dentist HPI wound check HPI Details The patient is a 39-year-old female presenting for follow-up for wound check from an abscess that was incision and drained on 09/13/2024 here at the primary care clinic. Along with a with a rash from adhesive tape. The abscess was initially large and painful, with significant bleeding noted on Monday after the incision and drainage. The patient has been managing the ab scess by cleaning it regularly and applying warm compresses. The bleeding has reduced significantly, and the abscess is healing well. The patient developed a rash from the adhesive tape used for dressing the abscess. The rash is attributed to the tape, and alternative dressing methods are being considered. Social History - Family status: Lives with boyfriend an d his daughter. [facility] Medical History (Updated 09/16/24 @ 11:29 by Jenny Bustillo PA-C) Contact dermatitis Wound check, abscess Abdominal wall abscess Overweight with body mass index (BMI) of 26 to 26.9 in adult Pilonidal cyst Establishing care with new doctor, encounter for Breast cancer screening Cervical cancer screening Family History Father Throat cancer Mother No problems noted. Social History Housing: House Alcohol intake: current Alcohol intake frequency: a few times a week Alcohol type: beer Patient Tobacco Use Status: Never used Tobacco Substance Use Type: Crack/Cocaine service: No Current occupational status: employed Cognitive needs: No Hearing needs: No Vision needs: Yes (rx glasses) Questionnaire PHQ-9 Over the last 2 weeks, how often have you been bothered by any of the following problems? 1. Little interest or pleasure in doing things: not at all 2. Feeling down, depressed, or hopeless: not at all 3. Trouble falling or staying asleep, or sleeping too much: not at all 4. Feeling tired or having little energy: not at all 5. Poor appetite or overeating: not at all 6. Feeling bad about yourself - or that you are a failure or have let yourself or your family down: not at all 7. Trouble concentrating on things, such as reading the newspaper or watching television: not at all 8. Moving or speaking so slowly that other people could have noticed. Or the opposite - being so fidgety or restless that you have been moving around a lot more than usual: not at all 9. Thoughts that you would be better off or of hurting yourself in some way: not at all Total score: 0 Depression Screening Interpretation: Negative Depression Screening Done: Yes 39673 - PHQ-9 Billing: Yes Source: Developed by Drs. Julius Maria, Evelyn Dalton, René Farnsworth and colleagues, with an educational van from [employer]. Thrive Questionnaire Date Thrive assessed: 08/20/24 I am a: Patient What is your living situation today?: I have a steady place to live Within the past 12 months, did the food you bought not last and you didn't have the money to get more?: Never true Within the past 12 months, did you worry whether your food would run out before you got money to buy more?: Never true Do you have trouble paying for medicines?: No Do you have trouble getting transportation to medical appointments?: No Do you have trouble paying your heating and electricity bill?: No Do you have trouble taking care of your child, family member or friend?: No Do you have trouble with day-to-day activities such as bathing, preparing meals, shopping, managing finances, etc.?: No Are you currently unemployed and looking for a job?: No Are you interested in more education?: No Please select the resources that you would like help with: None THRIVE Score: 0 AUDIT C Alcohol Use Questionnaire (AUDIT-C) 1. How often do you have a drink containing alcohol?: 4 or more times a week 2. How many drinks containing alcohol do you have on a typical day when you are drinking?: 1 or 2 3. How often do you have six or more drinks on one occasion?: Never Total Score: 4 Score Reviewed/Action Taken: No CHARLES-7 AMB Questionnaire CHARLES-7 Date CHARLES - 7 assessed: 08/20/24 Feeling nervous, anxious, or on edge: 0 = Not at all Not being able to stop or control worryin = Not at all Worrying too much about different things: 0 = Not at all Trouble relaxin = Not at all Being so restless that it is hard to sit still: 0 = Not at all Becoming easily annoyed or irritable: 0 = Not at all Feeling afraid as if something awful might happen: 0 = Not at all Total CHARLES-7 score (0-4 normal; 5-9 mild; 10-14 moderate; 15-21 severe): 0 Source: Developed by Drs. Julius Maria, Evelyn Dalton, René Farnsworth and colleagues, with an educational van from [employer]. CHARLES-7 Assessment Billing CHARLES-7 Assessment Tool: CHARLES-7 Assessment 66850 Review of Systems Const Details: - Integumentary: Reports abscess with reduced bleeding and rash from adhesive tape. Physical exam (Primary Care) Vital Signs: Last Vital Signs Temp 97.9 F 09/16/24 10:32 Pulse 85 09/16/24 10:32 Resp 20 09/16/24 10:32 BP 130/86 09/16/24 10:32 Pulse Ox 98 09/16/24 10:32 Oxygen Delivery Method Room Air 09/16/24 10:32 Care Plan Goal for BP management: <140/90 at Goal BMI result Body Mass Index 27.7 BMI Assessment/Plan discussion: High BMI High, discussed plan: lifestyle, weight reduction, dietary, physical activity and alcohol moderation Tobacco/Smoking Status: Tobacco use Status Tobacco use date assessed 09/13/24 09/16/24 10:32 Patient Tobacco Use Status Never used Tobacco 09/16/24 10:32 PHQ-9: PHQ-9 Score PHQ-9: Total score 0 09/16/24 10:38 Depression Screening Interpretation: Negative Thrive Assessment: Date of Thrive Assessment Date Thrive assessed 08/20/24 09/16/24 10:32 Const Other: Appearance: Alert. Oriented X3. No acute distress. Head: Normal external exam. Normocephalic. Atraumatic. Eyes: Pupils are equal, round, and reactive to light. Extraocular movements intact. Conjunctiva and sclera normal. Eyelids normal. Throat: Pharynx normal. Uvula midline. Moist mucous membranes. Neck: Normal inspection. Neck supple. Full range of motion. Cardiovascular: Normal heart rate and rhythm. Heart sound normal. No murmurs noted. Pulses normal throughout. Respiratory: No respiratory distress. Painless inspiration. Abdomen: Wound to right upper abdominal wall that is improving with minimal bloody drainage. Mild induration although no fluctuance, foul odor, streaking or foreign bodies or crepitus noted. No abdominal tenderness to the rest of the abdomen or crepitus to the rest of the abdomen. Mild rash/contact dermatitis to the wound site due to tape. Bowel sounds normal in all 4 quadrants. No distent ion noted. No organomegaly noted. No visible injury noted. Back: Full range of motion noted. Skin: Skin warm and dry. Normal skin color. Normal skin turgor. No lesions/lacerations noted. Extremities: Extremities exhibit normal range of motion. Neuro: Oriented X 3. No motor deficit. No sensory deficit. Reflexes normal. Coding Level of Care Code Est Pt Level 4 (88430) Diagnoses Wound check, abscess Z51.89 Contact dermatitis L25.9 Additional Codes CHARLES-7 Assessment Billing - CHARLES-7 Assessment Tool: CHARLES-7 Assessment 54249 ([id number]) PHQ-9 - 60114 - PHQ-9 Billing: Yes ([id number]) Assessment & Plan Assessment & Plan (1) Wound check, abscess: Code(s): Z51.89 - Encounter for other specified aftercare Category: Medical Plan: The wound was cleaned with normal saline. No purulent drainage was manually excreted. Patient tolerating secretion well. Bacitracin with nonadherent gauze and tape paper tape placed. The patient is advised to continue cleaning the wound regularly and applying warm compresses to aid healing. Follow-up with the wound care center is recommended if the condition does not improve. (2) Contact dermatitis: Code(s): L25.9 - Unspecified contact dermatitis, unspecified cause Category: Medical Plan: The patient is advised to switch to paper tape to prevent further irritation. A steroid cream, such as betamethasone, is prescribed to alleviate the rash. Plan Plan Patient was informed and verbally consented to the use of an ambient scribe for clinic note documentation during this visit. 1. Abscess The patient is advised to continue cleaning the abscess/wound regularly and applying warm compresses to aid healing. Follow-up with the wound care center is recommended if the condition does not improve. 2. Rash From Adhesive Tape The patient is advised to switch to paper tape to prevent further irritation. A steroid cream, such as betamethasone, is prescribed to alleviate the rash. The patient was informed about the management of the abscess, including regular cleaning and warm compresses. The importance of follow-up with the wound care center was emphasized if the condition does not improve. The patient was advised to switch to paper tape to prevent further skin irritation and was prescribed a steroid cream to manage the rash. Medications: New betamethasone valerate 0.1% 1 appl topical TID PRN 45 grams 0RF skin irritation Patient Instructions: - Clean the abscess regularly and apply warm compresses. - Use paper tape instead of the current adhesive to prevent rash. - Apply the prescribed steroid cream to the rash as directed. - Follow up with the wound care center if the abscess does not improve.
[2024-09-16 10:32] VITALS: BP 130/86; PULSE 85; RESP 20; TEMP 36.6; O2SAT 98; BMI 27.7
== END 2024-09-16 11:06 | disposition home or self-care (01) ==
LOC: HO.HMCSH 10:26
PROVIDERS: PCP Physician Assistant Medical; Visit Provider Physician Assistant Medical
DX: L25.9 Unspecified contact dermatitis, unspecified cause (principal); Z51.89 Encounter for other specified aftercare

== ENCOUNTER → 2024-09-16 10:26 | Outpatient (BNVA) | payer BC, SELFPAY | PROVIDERS: PCP Physician Assistant Medical; Visit Provider Physician Assistant Medical | DX: Z13.89 Encounter for screening for other disorder (principal) ==

== ENCOUNTER 2024-10-08 15:30 | Outpatient (RCR) | payer BC, SELFPAY | END 2024-10-08 16:42 | disposition home or self-care (01) | LOC: HO.WCC 15:30 | PROVIDERS: PCP Physician Assistant Medical; Visit Provider Surgery Surgical Oncology | DX: L02.211 Cutaneous abscess of abdominal wall (principal); Z79.891 Long term (current) use of opiate analgesic; Z79.2 Long term (current) use of antibiotics; Z79.899 Other long term (current) drug therapy | CPT/HCPCS: 10060; 99212; 99213 ==

== ENCOUNTER 2024-10-10 13:31 | Outpatient (AMB) | payer BC, SELFPAY ==
--- NOTE | 2024-10-10 13:30 | A.OFFPC_ITS ---
Vital Signs 10/10/24 13:31 Height 5 ft 3.39 in Weight 157 lb 6 oz BMI 27.5 BP 126/78 Blood Pressure Location Rt brachial Position Sitting Respiration 16 Pulse 80 Pulse Source Pulse Oximeter Temp 99.1 F Temp Source Temporal Artery Scan Pulse Oximetry (%) 98 Oxygen Delivery Method Room Air Intake Visit Reasons: ? recurrence pilonidal cyst Tube Blower Required: No Accompanied by: Self / Same As Patient Allergies No Known Allergies Allergy (Verified 10/10/24 14:03) Medication List - Last Reconciled 10/10/24 by Jenny Bustillo PA-C gabapentin mg PO lamotrigine 150 mg PO BID mupirocin 2% 1 appl topical BID Tobacco use date assessed: 09/13/24 Dental Screening Dental Screen Date: 09/13/24 Did you have a dental visit in the last 12 months?: Yes Did you have a dental problem in the last 6 months where you did not have access to dental care?: No Was dental information given to patient?: Patient has dentist HPI ? recurrence pilonidal cyst HPI Details The patient is a 39-year-old female presenting with a possible abscess to buttocks. The patient reported a lesion that was initially larger and tender, with associated itchiness, raising concerns due to her history of left buttocks abscess. On 09/16/2024 patient had an I and D of the right abdominal wall incision and drainage and she [facility] up with [facility] in wound has completely healed. The patient denied experiencing fever or chills and reported that her abdominal wound had healed well, as confirmed by a wound clinic visit. She was advised to keep the area covered to prevent irritation and was informed that the wound appeared much better. The patient had missed work from September 09 to September 21 due to the abscess and was applying for FMLA due to the extended recovery period. She expressed concerns about her employment situation due to the time off required for her medical condition. Social History - Employment: Patient expressed concerns about job security due to medical leave. [facility] Medical History (Updated 10/10/24 @ 14:15 by Jenny Bustillo PA-C) Skin irritation Contact dermatitis Wound check, abscess Abdominal wall abscess Overweight with body mass index (BMI) of 26 to 26.9 in adult Pilonidal cyst Establishing care with new doctor, encounter for Breast cancer screening Cervical cancer screening Family History Father Throat cancer Mother No problems noted. Social History Housing: House Alcohol intake: current Alcohol intake frequency: a few times a week Alcohol type: beer Patient Tobacco Use Status: Never used Tobacco Substance Use Type: Crack/Cocaine service: No Current occupational status: employed Cognitive needs: No Hearing needs: No Vision needs: Yes (rx glasses) Questionnaire PHQ-9 Over the last 2 weeks, how often have you been bothered by any of the following problems? 1. Little interest or pleasure in doing things: not at all 2. Feeling down, depressed, or hopeless: not at all 3. Trouble falling or staying asleep, or sleeping too much: not at all 4. Feeling tired or having little energy: not at all 5. Poor appetite or overeating: not at all 6. Feeling bad about yourself - or that you are a failure or have let yourself or your family down: not at all 7. Trouble concentrating on things, such as reading the newspaper or watching television: not at all 8. Moving or speaking so slowly that other people could have noticed. Or the opposite - being so fidgety or restless that you have been moving around a lot more than usual: not at all 9. Thoughts that you would be better off or of hurting yourself in some way: not at all Total score: 0 Depression Screening Interpretation: Negative Depression Screening Done: Yes 02393 - PHQ-9 Billing: Yes Source: Developed by Drs. Julius Maria, Evelyn Dalton, René Farnsworth and colleagues, with an educational van from [employer]. Thrive Questionnaire Date Thrive assessed: 08/20/24 I am a: Patient What is your living situation today?: I have a steady place to live Within the past 12 months, did the food you bought not last and you didn't have the money to get more?: Never true Within the past 12 months, did you worry whether your food would run out before you got money to buy more?: Never true Do you have trouble paying for medicines?: No Do you have trouble getting transportation to medical appointments?: No Do you have trouble paying your heating and electricity bill?: No Do you have trouble taking care of your child, family member or friend?: No Do you have trouble with day-to-day activities such as bathing, preparing meals, shopping, managing finances, etc.?: No Are you currently unemployed and looking for a job?: No Are you interested in more education?: No Please select the resources that you would like help with: None THRIVE Score: 0 AUDIT C Alcohol Use Questionnaire (AUDIT-C) 1. How often do you have a drink containing alcohol?: 4 or more times a week 2. How many drinks containing alcohol do you have on a typical day when you are drinking?: 1 or 2 3. How often do you have six or more drinks on one occasion?: Never Total Score: 4 Score Reviewed/Action Taken: No CHARLES-7 AMB Questionnaire CHARLES-7 Date CHARLES - 7 assessed: 08/20/24 Feeling nervous, anxious, or on edge: 0 = Not at all Not being able to stop or control worryin = Not at all Worrying too much about different things: 0 = Not at all Trouble relaxin = Not at all Being so restless that it is hard to sit still: 0 = Not at all Becoming easily annoyed or irritable: 0 = Not at all Feeling afraid as if something awful might happen: 0 = Not at all Total CHARLES-7 score (0-4 normal; 5-9 mild; 10-14 moderate; 15-21 severe): 0 Source: Developed by Drs. Julius Maria, Evelyn Dalton, René Farnsworth and colleagues, with an educational van from [employer]. CHARLES-7 Assessment Billing CHARLES-7 Assessment Tool: CHARLES-7 Assessment 16208 Review of Systems Const Details: - General: Denies fever or chills. - Skin: Reports itchy lesion with initial tenderness. Physical exam (Primary Care) Vital Signs: Last Vital Signs Temp 99.1 F 10/10/24 13:31 Pulse 80 10/10/24 13:31 Resp 16 10/10/24 13:31 BP 126/78 10/10/24 13:31 Pulse Ox 98 10/10/24 13:31 Oxygen Delivery Method Room Air 10/10/24 13:31 Care Plan Goal for BP management: <140/90 at Goal BMI result Body Mass Index 27.5 Tobacco/Smoking Status: Tobacco use Status Tobacco use date assessed 09/13/24 10/10/24 13:40 Patient Tobacco Use Status Never used Tobacco 10/10/24 13:40 PHQ-9: PHQ-9 Score PHQ-9: Total score 0 10/10/24 13:40 Depression Screening Interpretation: Negative Thrive Assessment: Date of Thrive Assessment Date Thrive assessed 08/20/24 10/10/24 13:40 Const Other: Appearance: Alert. Oriented X3. No acute distress. Head: Normal external exam. Normocephalic. Atraumatic. Eyes: Pupils are equal, round, and reactive to light. Extraocular movements intact. Conjunctiva and sclera normal. Eyelids normal. Throat: Pharynx normal. Uvula midline. Moist mucous membranes. Neck: Normal inspection. Neck supple. Full range of motion. Cardiovascular: Normal heart rate and rhythm. Respiratory: No respiratory distress. Painless inspiration. Abdomen: Soft and nontender. Abdominal wall shows signs of previous infection, now healed well. No current signs of abscess. Back: Full range of motion noted. Skin: Skin warm and dry. Normal skin color. Normal skin turgor. Some irritation noted on the skin to the left buttocks, although no fluctuance, induration, foreign bodies, erythema, streaking or abscess noted at this time. Warm compresses and Bactroban recommended. No additonal rashes/lesions/lacerations noted. Coding Level of Care Code Est Pt Level 4 (45139) Complex EM visit Add On G2211 Diagnoses Skin irritation R23.8 Additional Codes CHARLES-7 Assessment Billing - CHARLES-7 Assessment Tool: CHARLES-7 Assessment 15946 ([id number]) PHQ-9 - 67945 - PHQ-9 Billing: Yes ([id number]) Assessment & Plan Assessment & Plan (1) Skin irritation: Code(s): R23.8 - Other skin changes Category: Medical Plan: The patient was advised to apply warm compresses to the affected area and use Bactroban ointment to prevent infection. She was instructed to return if symptoms worsened or if there were signs of infection. Plan Plan Patient was informed and verbally consented to the use of an ambient scribe for clinic note documentation during this visit. 1. Skin irritation The patient was advised to apply warm compresses to the affected area and use Bactroban ointment to prevent infection. She was instructed to return if symptoms worsened or if there were signs of infection. I discussed with the patient the importance of monitoring the skin irritation for any changes. We reviewed the use of warm compresses and Bactroban ointment to manage the abscess and prevent infection. I advised her to return if symptoms worsened or if there were signs of infection. We also discussed her employment concerns and the application for FMLA due to her medical condition. Medications: New mupirocin 2% 1 appl topical BID 22 grams 1RF Patient Instructions: - Apply warm compresses to the affected area regularly. - Use Bactroban ointment as directed to prevent infection. - Monitor the lesion and cysts for any changes in size or symptoms. - Return to the clinic if symptoms worsen or if there are signs of infection.
[2024-10-10 13:31] VITALS: BP 126/78; PULSE 80; RESP 16; TEMP 37.3; O2SAT 98; BMI 27.5
== END 2024-10-10 14:01 | disposition home or self-care (01) ==
LOC: HO.HMCSH 13:31
PROVIDERS: PCP Physician Assistant Medical; Visit Provider Physician Assistant Medical
DX: R23.8 Other skin changes (principal)

== ENCOUNTER → 2024-10-10 13:31 | Outpatient (BNVA) | payer BC, SELFPAY | PROVIDERS: PCP Physician Assistant Medical; Visit Provider Physician Assistant Medical | DX: R23.8 Other skin changes (principal) | CPT/HCPCS: 96127 ==

== ENCOUNTER 2024-11-06 07:10 | Emergency (ER) | payer BC, SELFPAY ==
[2024-11-06 07:12] VITALS: BP 122/67; PULSE 101; RESP 16; TEMP 36.6; O2SAT 98; BMI 28.3
[2024-11-06] MEDS: Lidocaine 4 % Cream KIT 1 APPL TOPICAL (07:47)
--- NOTE | 2024-11-06 07:54 | PC.NURSE ---
Pt coming in today with an abscess in Left armpit, starting 2 days ago, red/warm/harden area noted in armpit up onto her upper arm area. Small white headed noted starting this morning. Pt denies any drainage. Denies that she has attempted to drain anything. 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 Pt reporting pain is worse when she lifts her arm up. Lidocaine on area now, MD aware.
[2024-11-06 07:58] LABS: MANUAL DIFF FLAG NO
[2024-11-06 08:04] LABS: Hematocrit 35.4 % (37.0-47.0); Hemoglobin 12.2 g/dl (12.0-16.0); Imm Gran Abs Auto 0.06 X10*3/uL (0.00-0.03); Imm Gran Pct Auto 0.5 % (0.0-0.4); Lymphocytes Absolute Auto 1.6 X10*3/uL (1.2-4.9); Mean Corpuscular HGB Conc 34.5 g/dl (31.0-35.0); Mean Corpuscular Hemoglobin 33.5 pg (27.0-33.0); Mean Corpuscular Volume 97.3 fL (80.0-98.0); NRBC Abs Auto 0.000 X10*3/uL (0.0-0.012); NRBC Pct Auto 0.0 /100WBC (0.0-0.2); Platelet Count 384 X10*3/uL (160-400); Red Blood Count 3.64 X10*6/uL (4.20-5.50); White Blood Count 13.0 X10*3/uL (4.8-10.8)
[2024-11-06] MEDS: Lidocaine HCl 1 % MPF 5 ML VIAL SUBCUT (08:13)
[2024-11-06] MEDS: HYDROcodone Bit/Acetam 5/325 TABLET 1 TAB PO (08:14)
[2024-11-06 08:23] LABS: Alanine Aminotransferase 13 U/L (0-31); Albumin Level 4.2 g/dL (3.5-5.0); Alkaline Phosphatase 59 U/L (39-117); Anion Gap 12 (12-20); Aspartate Amino Transferase 20 U/L (5-31); Blood Urea Nitrogen 6 mg/dL (9-16); Calcium 8.6 mg/dL (8.4-10.2); Carbon Dioxide 25 mmol/L (22-29); Chloride 107 mmol/L (96-108); Creatinine Clr Calc Pharmacy 106.9; Estimated Glomerular Filt Rate > 60; Potassium 4.0 mmol/L (3.3-5.1); Sodium 140 mmol/L (135-145); Total Protein 6.8 g/dL (6.5-8.0)
--- NOTE | 2024-11-06 08:30 | ED_ITS ---
HPI - Skin/Abscess/Foreign Bdy General Chief complaint: Skin/Abscess/Foreign Body Stated complaint: Abscess in L armpit Time Seen by Provider: 11/06/24 07:32 Source: patient Mode of arrival: ambulatory Limitations: no limitations History of Present Illness ED Provider: RASHEEDA ROBLES narrative: 39 yo female with recent boils now she notes 1 week of L armpit boil but no fevers. She has significant pain. She cannot figure out what would be causing this. She has redness and romero. Uses heat to treat the area. MD complaint: abscess/boil Onset (ago): week(s) (1) Location: LUE Severity: moderate Quality: aching Pain Consistency: constant Relieving factors: immobilization Exacerbating factors: palpation and movement Context: other Associated symptoms: denies other symptoms Treatments prior to arrival: other Related Data Home Medications ?Medication ?Instructions ?Recorded ?Confirmed gabapentin 100 mg capsule mg PO 08/20/24 10/10/24 lamotrigine 150 mg tablet 150 mg PO BID 08/20/2410/10 Previous Rx's ?Medication ?Instructions ?Recorded mupirocin 2 % topical ointment 1 appl topical BID #22 grams 10/10/24 cephalexin 500 mg capsule 500 mg PO QID 7 days #28 cap s 11/06/24 doxycycline hyclate 100 mg capsule 100 mg PO BID 7 day s #14 caps 11/06/24 hydrocodone 5 mg-acetaminophen 325 1 tab PO Q6H PRN pa in #10 tabs 11/06/24 mg tablet ondansetron 4 mg disintegrating 4 mg PO Q8H PRN nausea and 11/06/24 tablet vomiting #20 tabs Allergies Allergy/AdvReac Type Severity Reaction Status Date / Time No Known Allergies Allergy Verified 11/06/24 07:16 Review of Systems 2 Review of Systems: Constitutional : No Fever, No Chills ENT/Mouth : No sore throat, No Rhinorrhea Eyes: No Eye Pain, No Swelling, No Redness Cardiovascular : No Chest Pain, No SOB Respiratory : No Cough, No Sputum Gastrointestinal : No Nausea, No Vomiting, No Diarrhea, No abdominal Pain Genitourinary : No Dysuria, No Hematuria Musculoskeletal : No joint pain, No Myalgias, No Joint Swelling Skin : pos Skin Lesions, positive skin rash Neuro : No Weakness, No Numbness, No Headache All other systems reviewed and are negative [facility] Past Medical History Attestation statement: The following information was validated with the patient. Source: old records reviewed Medical History Skin irritation Contact dermatitis Wound check, abscess Abdominal wall abscess Overweight with body mass index (BMI) of 26 to 26.9 in adult Pilonidal cyst Establishing care with new doctor, encounter for Breast cancer screening Cervical cancer screening Family History Family History Father Throat cancer Mother No problems noted. Social History Social History Housing: House Alcohol intake: current Alcohol intake frequency: a few times a week Alcohol type: beer Patient Tobacco Use Status: Never used Tobacco Substance Use Type: Crack/Cocaine Advance Directives: No Advance Directives Information Provided: Yes Do you have a plan to hurt others: No Plan service: No Current occupational status: employed Cognitive needs: No Hearing needs: No Vision needs: Yes (rx glasses) Physical Exam 2 Vital Signs: Vital Signs: Last Vital Signs Temp 97.9 F 11/06/24 07:12 Pulse 101 H 11/06/24 07:12 Resp 16 11/06/24 07:12 BP 122/67 11/06/24 07:12 Pulse Ox 98 11/06/24 07:12 O2 Del Method Room Air 11/06/24 07:12 BMI result Body Mass Index 28.3 Appearance: Alert. Oriented X3. No acute distress. Eyes: Pupils equal, round and reactive to light. ENT: Pharynx normal. Neck: Normal inspection. CVS: Normal heart rate and rhythm. Pulses normal. Respiratory: No respiratory distress. Breath sounds normal. Abdomen: Soft and nontender. Skin: Skin warm and dry. Normal skin color. Extremities: No lower extremity edema. LUE axilla there is erythema and warmth there is a half dollar sized abscess that comes to a point no drainage. Redness remains in the axilla. distal NV intact Neuro: Oriented X 3. No motor deficit. No sensory deficit. Medications Administered Discontinued Medications Generic Name Dose Route Start Last Admin Trade Name Freq PRN Reason Stop Dose Admin Hydrocodone Bitart/Acetaminophen 1 tab 11/06/24 08:00 11/06/24 08:14 Hydrocodone Bit/Acetam 5/325 Tablet PO 11/06/24 08:01 1 tab ONCE ONE Administration Cephalexin HCl 500 mg 11/06/24 08:00 11/06/24 08:14 Cephalexin 500 Mg Capsule PO 11/06/24 08:01 500 mg ONCE ONE Administration Doxycycline Monohydrate 100 mg 11/06/24 08:00 11/06/24 08:14 Doxycycline Monohydrate 100 Mg Capsule PO 11/06/24 08:01 100 mg ONCE ONE Administration Lidocaine HCl 1 appl 11/06/24 07:32 11/06/24 07:47 Lidocaine 4 % Cream Kit TOPICAL 11/06/24 07:33 1 appl ONCE ONE Administration Protocol Lidocaine HCl 5 ml 11/06/24 08:00 11/06/24 08:13 Lidocaine Hcl 1 % Mpf 5 Ml Vial SUBCUT 11/06/24 08:01 5 ml ONCE ONE Administration Ondansetron HCl 4 mg 11/06/24 08:00 11/06/24 08:14 Ondansetron Odt 4 Mg Tab.Rapdis TRANSLINGU 11/06/24 08:01 4 mg ONCE ONE Administration Medical Decision Making Medical Decision Making MDM Narrative: 39 yo female with recent boils now here with recurrent boil but no systemic symptoms at this time will need I+D and will start on oral antibiotics. She is aware she needs to due a hibiclens wash weekly at this point given her recurrent boils. Differential Diagnosis Differential Diagnoses: The differential diagnosis associated with the presentation includes abscess, cellulitis Admission/Observation Consideration of admission/observation: Escalation of care including admission/observation considered s/p I+D can be managed with drainage Lab Data 11/06/24 07:53 11/06/24 07:53 Labs: Lab Results 11/06/24 Range/Units 07:53 WBC 13.0 H (4.8-10.8) X10*3/uL RBC 3.64 L (4.20-5.50) X10*6/uL Hgb 12.2 (12.0-16.0) g/dl Hct 35.4 L (37.0-47.0) % MCV 97.3 (80.0-98.0) fL MCH 33.5 H (27.0-33.0) pg MCHC 34.5 (31.0-35.0) g/dl RDW 13.5 (11.0-16.0) % Plt Count 384 (160-400) X10*3/uL MPV 8.8 L (9.4-12.3) fL Immature Gran % (Auto) 0.5 H (0.0-0.4) % Neut % (Auto) 77.4 H (45-73) % Lymph % (Auto) 12.5 L (20-40) % Coffey % (Auto) 6.5 (2-11) % Eos % (Auto) 2.8 (0-4) % Baso % (Auto) 0.3 (0-2) % Lymph # (Auto) 1.6 (1.2-4.9) X10*3/uL Coffey # (Auto) 0.9 (0.1-1.2) X10*3/uL Eos # (Auto) 0.4 (0.0-0.4) X10*3/uL Baso # (Auto) 0.0 (0.0-0.2) X10*3/uL Abs Immat Gran (auto) 0.06 H (0.00-0.03) X10*3/uL Absolute Neuts (auto) 10.1 H (2.0-8.3) x10*3/uL Absolute Nucleated RBC 0.000 (0.0-0.012) X10*3/uL Nucleated RBC % (auto) 0.0 (0.0-0.2) /100WBC Sodium 140 (135-145) mmol/L Potassium 4.0 (3.3-5.1) mmol/L Chloride 107 (96-108) mmol/L Carbon Dioxide 25 (22-29) mmol/L Anion Gap 12 (12-20) BUN 6 L (9-16) mg/dL Creatinine 0.66 (0.5-1.4) mg/dL Estim Creat Clear Calc 106.9 Estimated GFR > 60 Random Glucose 90 (60-115) mg/dL Calcium 8.6 D (8.4-10.2) mg/dL Total Bilirubin 0.6 (0.0-1.0) mg/dL AST 20 (5-31) U/L ALT 13 (0-31) U/L Alkaline Phosphatase 59 (39-117) U/L Total Protein 6.8 (6.5-8.0) g/dL Albumin 4.2 (3.5-5.0) g/dL External Record Review External record reviewed: Outpatient record Prescription Management I considered prescription management with: Pain Medication and Antibiotic Procedures Abscess I/D Site: other (L axilla) Side (if applicable): left Local Anesthetic: lidocaine 1% Amount of anesthesia used (mL): 5 Technique: incised with blade Sent for culture/gram staining?: No Irrigation: Yes Packing used?: iodoform Discharge Plan Discharge Clinical Impression: Abscess of skin or subcutaneous tissue Patient Disposition: Home, Self-Care Instructions: Abscess (ED), Abscess Incision and Drainage (DC) Additional Instructions: okay if packing comes out should have wound check in 48 hours okay to shower but no other water exposure monitor for fevers, redness, increased swelling or pain rest On a cephalosporin?antibiotic, softer bowel movements are to be expected. Call your provider if you move your bowels more than 4 times a day, your bowel movements are almost all liquid, or you get a rash.?? On doxycycline, do not take pills immediately before going to bed and swallow pills with plenty of water. Avoid direct sunlight, iron, antacids, and Pepto Bismol. Call your provider if you develop new ringing in your ears, new problems hearing, dizziness, difficulty swallowing, rash, abdominal discomfort, nausea, or diarrhea.? Prescriptions: New doxycycline hyclate 100 mg capsule 100 mg PO BID 7 Days Qty: 14 0RF hydrocodone-acetaminophen 5-325 mg tablet 1 tab PO Q6H PRN (Reason: pain) Qty: 10 0RF Rx Instructions: partial fill okay; Partial Fill upon patient request. cephalexin 500 mg capsule 500 mg PO QID 7 Days Qty: 28 0RF ondansetron 4 mg tablet,disintegrating 4 mg PO Q8H PRN (Reason: nausea and vomiting) Qty: 20 0RF No Action gabapentin 100 mg capsule PO lamotrigine 150 mg tablet 150 mg PO BID mupirocin 2 % ointment 1 appl topical BID Qty: 22 1RF Stand Alone Forms: Work/School Release Print Language: Hungarian
--- NOTE | 2024-11-06 08:54 | PC.NURSE ---
MD at bedside to lac and drain abscess.
[2024-11-06 09:14] VITALS: BP 126/74; PULSE 82; RESP 18; TEMP 36.7; O2SAT 100
[2024-11-06 09:28] VITALS: BP 126/74; PULSE 82; RESP 18; TEMP 36.7; O2SAT 100
== END 2024-11-06 09:29 | disposition home or self-care (01) ==
PROVIDERS: Emergency Provider Emergency Medicine; PCP Physician Assistant Medical
DX: L02.412 Cutaneous abscess of left axilla (principal); Z79.899 Other long term (current) drug therapy
CPT/HCPCS: 10060; 36415; 80053; 85025; 99284; J2003

== ENCOUNTER 2024-11-21 09:59 | Outpatient (AMB) | payer BC, SELFPAY ==
--- NOTE | 2024-11-21 10:07 | A.OFFPC_ITS ---
Vital Signs 11/21/24 10:08 Height 5 ft 3 in Weight 157 lb 8 oz BMI 27.9 BP 115/70 Blood Pressure Location Rt femoral Position Sitting Respiration 16 Pulse 84 Pulse Source Pulse Oximeter Temp 97.9 F Temp Source Temporal Artery Scan Pulse Oximetry (%) 97 Oxygen Delivery Method Room Air Intake Visit Reasons: ER Follow up Certified Composites Technician Required: No Accompanied by: Self / Same As Patient Allergies No Known Allergies Allergy (Verified 11/21/24 13:27) Medication List - Last Reconciled 11/21/24 by Jenny Bustillo PA-C gabapentin mg PO lamotrigine 150 mg PO BID Tobacco use date assessed: 09/13/24 Dental Screening Dental Screen Date: 09/13/24 Did you have a dental visit in the last 12 months?: Yes Did you have a dental problem in the last 6 months where you did not have access to dental care?: No Was dental information given to patient?: Patient has dentist HPI ER Follow up HPI Details The patient is a 39-year-old female presenting with a follow-up after an emergency room visit for a drained abscess. The abscess was drained in the emergency room, and the wound healed within a few days. This is the sixth occurrence of such abscesses since July, with some resolving spontaneously and others requiring medical intervention. She has seen me twice in the past few months for an abscess to her right abdominal wall and her buttocks/pilonidal area abscess which had to be drained. She was seen by me for follow-up and then referred to wound care and then [facility] from [facility]. She denies having a current abscess at this time. The patient reports experiencing multiple small, hard nodules under the skin, some of which have resolved on their own while others have required drainage. She has been prescribed antibiotics, which she completed, but the abscesses have recurred although at a different site not in the same sites. The patient has been unable to follow up immediately due to scheduling conflicts and has missed work as a result of these abscesses. She has been advised to seek dermatological consultation to further investigate the cause of these recurrent abscesses. Patient wanted FMLA paperwork filled out although I explained to her that FMLA is more for chronic conditions or a condition where she will be receiving chronic care such as wound care weekly visits or therapy visits etc. I explained to patient FMLA is not for an acute abscess that goes away within 3 days. I explained to her that the abscesses she has had have not been at the same loc ation therefore if these are not chronic abscesses. I gave her a work note for when she was seen at the [facility] 2 days ago and a work note for today. I explained to her she will have to get a work note from the emergency department for when she was seen by them. I explained to her that if she develops a recurrent abscess where her prior abscess was in if she requires multiple visits after that such as wound care weekly visits at that time she could apply for FMLA. Patient understands agrees with this plan. PENDING SALE TO [facility] Medical History Bipolar disorder, unspecified Cutaneous abscesses of both axillae Skin irritation Contact dermatitis Wound check, abscess Abdominal wall abscess Overweight with body mass index (BMI) of 26 to 26.9 in adult Pilonidal cyst Establishing care with new doctor, encounter for Breast cancer screening Cervical cancer screening Family History Father Throat cancer Mother No problems noted. Social History Housing: House Alcohol intake: current Alcohol intake frequency: a few times a week Alcohol type: beer Patient Tobacco Use Status: Never used Tobacco Substance Use Type: Crack/Cocaine service: No Current occupational status: employed Cognitive needs: No Hearing needs: No Vision needs: Yes (rx glasses) Questionnaire PHQ-9 Over the last 2 weeks, how often have you been bothered by any of the following problems? 1. Little interest or pleasure in doing things: not at all 2. Feeling down, depressed, or hopeless: not at all 3. Trouble falling or staying asleep, or sleeping too much: not at all 4. Feeling tired or having little energy: not at all 5. Poor appetite or overeating: not at all 6. Feeling bad about yourself - or that you are a failure or have let yourself or your family down: not at all 7. Trouble concentrating on things, such as reading the newspaper or watching television: not at all 8. Moving or speaking so slowly that other people could have noticed. Or the opposite - being so fidgety or restless that you have been moving around a lot more than usual: not at all 9. Thoughts that you would be better off or of hurting yourself in some way: not at all Total score: 0 Depression Screening Interpretation: Negative Depression Screening Done: Yes 03244 - PHQ-9 Billing: Yes Source: Developed by Drs. Julius Maria, Evelyn Dalton, René Farnsworth and colleagues, with an educational van from [employer]. Thrive Questionnaire Date Thrive assessed: 08/20/24 I am a: Patient What is your living situation today?: I have a steady place to live Within the past 12 months, did the food you bought not last and you didn't have the money to get more?: Never true Within the past 12 months, did you worry whether your food would run out before you got money to buy more?: Never true Do you have trouble paying for medicines?: No Do you have trouble getting transportation to medical appointments?: No Do you have trouble paying your heating and electricity bill?: No Do you have trouble taking care of your child, family member or friend?: No Do you have trouble with day-to-day activities such as bathing, preparing meals, shopping, managing finances, etc.?: No Are you currently unemployed and looking for a job?: No Are you interested in more education?: No Please select the resources that you would like help with: None THRIVE Score: 0 AUDIT C Alcohol Use Questionnaire (AUDIT-C) 1. How often do you have a drink containing alcohol?: 4 or more times a week 2. How many drinks containing alcohol do you have on a typical day when you are drinking?: 1 or 2 3. How often do you have six or more drinks on one occasion?: Never Total Score: 4 Score Reviewed/Action Taken: No CHARLES-7 AMB Questionnaire CHARLES-7 Date CHARLES - 7 assessed: 08/20/24 Feeling nervous, anxious, or on edge: 0 = Not at all Not being able to stop or control worryin = Not at all Worrying too much about different things: 0 = Not at all Trouble relaxin = Not at all Being so restless that it is hard to sit still: 0 = Not at all Becoming easily annoyed or irritable: 0 = Not at all Feeling afraid as if something awful might happen: 0 = Not at all Total CHARLES-7 score (0-4 normal; 5-9 mild; 10-14 moderate; 15-21 severe): 0 Source: Developed by Drs. Julius Maria, Evelyn Dalton, René Farnsworth and colleagues, with an educational van from [employer]. CHARLES-7 Assessment Billing CHARLES-7 Assessment Tool: CHARLES-7 Assessment 95706 Review of Systems Const Details: - Integumentary: Reports recurrent skin abscesses and tenderness in affected areas. - Musculoskeletal: Reports tenderness and numbness in the arm associated with the abscess. All systems reviewed & are unremarkable except as noted in HPI and below Physical exam (Primary Care) Vital Signs: Last Vital Signs Temp 97.9 F 11/21/24 10:08 Pulse 84 11/21/24 10:08 Resp 16 11/21/24 10:08 BP 115/70 11/21/24 10:08 Pulse Ox 97 11/21/24 10:08 Oxygen Delivery Method Room Air 11/21/24 10:08 Care Plan Goal for BP management: <140/90 at Goal BMI result Body Mass Index 27.9 Tobacco/Smoking Status: Tobacco use Status Tobacco use date assessed 09/13/24 11/21/24 10:12 Patient Tobacco Use Status Never used Tobacco 11/21/24 10:12 PHQ-9: PHQ-9 Score PHQ-9: Total score 0 11/21/24 13:33 Depression Screening Interpretation: Negative Thrive Assessment: Date of Thrive Assessment Date Thrive assessed 08/20/24 11/21/24 10:12 Const Other: Appearance: Alert. Oriented X3. No acute distress. Head: Normal external exam. Normocephalic. Atraumatic. Eyes: Pupils are equal, round, and reactive to light. Extraocular movements intact. Conjunctiva and sclera normal. Eyelids normal. Throat: Pharynx normal. Uvula midline. Moist mucous membranes. Neck: Normal inspection. Neck supple. Full range of motion. Cardiovascular: Normal heart rate and rhythm. Respiratory: No respiratory distress. Painless inspiration. Back: No costovertebral angle tenderness. Full range of motion noted. Skin: Skin warm and dry. Normal skin color. Normal skin turgor. No rashes/lesions/lacerations noted. Extremities: Extremities exhibit normal range of motion. Extremities nontender. Tenderness noted in the upper extremity, with some numbness upon pressure. Neuro: Oriented X 3. No motor deficit. No sensory deficit. Reflexes normal. Coding Level of Care Code Est Pt Level 4 (58664) Complex EM visit Add On G2211 Diagnoses Wound check, abscess Z51.89 Additional Codes CHARLES-7 Assessment Billing - CHARLES-7 Assessment Tool: CHARLES-7 Assessment 14752 ([id number]) PHQ-9 - 74112 - PHQ-9 Billing: Yes ([id number]) Assessment & Plan Assessment & Plan (1) Wound check, abscess: Code(s): Z51.89 - Encounter for other specified aftercare Category: Medical Plan: The patient has experienced recurrent skin abscesses since July, with some requir ing drainage and others resolving spontaneously. There is no present abscess at this time. A dermatology referral has been made to investigate potential underlying causes and to determine appropriate management strategies. Plan Plan Patient was informed and verbally consented to the use of an ambient scribe for clinic note documentation during this visit. 1. Recurrent Skin Abscesses The patient has experienced recurrent skin abscesses since July, with some requiring drainage and others resolving spontaneously. A dermatology referral has been made to investigate potential underlying causes and to determine appropriate management strategies. 2. Tenderness And Inflammation In The Affected Area The patient reports tenderness and inflammation in the area of the abscess, which has been associated with numbness in the arm. Further evaluation by a termite treater helper is recommended to assess the need for additional treatment or intervention. During the visit, I discussed with the patient the recurrent nature of her skin abscesses and the importance of seeking a dermatological evaluation to identify any underlying causes. We also talked about the potential need for further diagnostic testing and the possibility of ongoing management depending on the termite treater helper's findings. Orders: Referrals Dermatology Referral L02.411 - Cutaneous abscess of right axilla, L02.412 - Cutaneous abscess of left axilla Patient Instructions: - Follow up with the termite treater helper as scheduled to investigate the cause of recurrent abscesses. - Monitor for any new abscesses or changes in symptoms and seek medical attention if needed. - Continue to practice good hygiene and avoid any known irritants that may contribute to skin issues.
[2024-11-21 10:08] VITALS: BP 115/70; PULSE 84; RESP 16; TEMP 36.6; O2SAT 97; BMI 27.9
== END 2024-11-21 11:00 | disposition home or self-care (01) ==
LOC: HO.HMCSH 09:59
PROVIDERS: PCP Physician Assistant Medical; Visit Provider Physician Assistant Medical
DX: Z51.89 Encounter for other specified aftercare (principal)

== ENCOUNTER → 2024-11-21 09:59 | Outpatient (BNVA) | payer BC, SELFPAY | PROVIDERS: PCP Physician Assistant Medical; Visit Provider Physician Assistant Medical | DX: L02.411 Cutaneous abscess of right axilla (principal); L02.412 Cutaneous abscess of left axilla; Z51.89 Encounter for other specified aftercare | CPT/HCPCS: 96127 ==

== ENCOUNTER 2024-12-02 07:40 | Emergency (ER) | payer BC, SELFPAY ==
[2024-12-02 07:51] VITALS: BP 134/104; PULSE 88; RESP 14; TEMP 36.6; O2SAT 100; BMI 28.2
--- NOTE | 2024-12-02 08:03 | ED_ITS ---
HPI - Skin/Abscess/Foreign Bdy General Chief complaint: Skin/Abscess/Foreign Body Stated complaint: abscess on R lower buttox Time Seen by Provider: 12/02/24 08:03 Source: patient and RN notes reviewed Mode of arrival: ambulatory Limitations: no limitations History of Present Illness ED Provider: Livier Smiley PA-C HPI narrative: This is a 39-year-old female with a past medical history of recurrent cyst and abscess, who presents to the ER with concerns of right buttock abscess which started approximately a week and a half ago. Patient states that she has these episodes of recurrent abscesses in multiple different locations throughout her body. This is the 1st time she has ever had an abscess in this region. Patient reports that she noticed pain in his area and saw a therapeutic specialist on where she had a steroid injection placed in this region. She states that since then she has had worsening pain, and swelling. She has been applying a electric heating pad to the area which has provided her without any relief. She denies any fevers or chills. Denies taking any medications at home to treat her current symptoms. She states that yesterday she attempted to pick at these wound and noticed some drainage. She is not currently on antibiotics. Unsure when her last tetanus shot was. No other complaints or concerns at this time. MD complaint: abscess/boil Onset (ago): week(s) Tetanus up to date: unsure Location: buttocks Severity: moderate Pain Consistency: constant Relieving factors: none Exacerbating factors: none Associated symptoms: denies other symptoms Treatments prior to arrival: none Related Data Home Medications ?Medication ?Instructions ?Recorded ?Confirmed gabapentin 100 mg capsule mg PO 08/20/24 11/21/24 lamotrigine 150 mg tablet 150 mg PO BID 08/20/2411/21 Previous Rx's ?Medication ?Instructions ?Recorded acetaminophen 500 mg tablet 1,000 mg (2 x 500 mg) PO Q 8H PRN 12/02/24 (Tylenol Extra Strength) pain #30 tabs cephalexin 500 mg capsule 500 mg PO QID 7 days #28 cap s 12/02/24 doxycycline hyclate 100 mg capsule 100 mg PO BID 7 day s #14 caps 12/02/24 ibuprofen 600 mg tablet 600 mg PO Q6H PRN pain #30 t abs 12/02/24 morphine 15 mg immediate release 15 mg PO Q6H #5 tabs 12/02/24 tablet Allergies Allergy/AdvReac Type Severity Reaction Status Date / Time No Known Allergies Allergy Verified 12/02/24 07:53 Review of Systems 2 Review of Systems: Constitutional : No Fever, No Chills ENT/Mouth : No sore throat, No Rhinorrhea Eyes: No Eye Pain, No Swelling, No Redness Cardiovascular : No Chest Pain, No SOB Respiratory : No Cough, No Sputum Gastrointestinal : No Nausea, No Vomiting, No Diarrhea, No abdominal Pain Genitourinary : No Dysuria, No Hematuria Musculoskeletal : No joint pain, No Myalgias, No Joint Swelling Skin : No Skin Lesions, +redness right buttock Neuro : No Weakness, No Numbness, No Headache All other systems reviewed and are negative Yes all other systems are reviewed and are negative Constitutional: Constitutional: Reports as per HPI Eyes: Eyes: Reports as per HPI, Denies change in vision and Denies eye discharge ENT: Reports system reviewed and no additional complaints, except as documented, Reports as per HPI, Reports Normal hearing present and Denies facial pain Cardiovascular: Cardiovascular: Reports as per HPI and Denies chest pain Respiratory: Respiratory: Reports as per HPI and Denies cough Gastrointestinal: Gastrointestinal: Reports as per HPI, Reports no additional gastrointestinal complaints, Denies abdominal pain, Denies diarrhea, Denies nausea and Denies vomiting Genitourinary: Genitourinary: Reports no additional female genitourinary complaints and Reports as per HPI Musculoskeletal: Musculoskeletal: Reports no additional musculoskeletal complaints and Reports as per HPI Integumentary/Breasts: Skin/Breast: Reports system reviewed and no additional complaints, except as docu, Reports as per HPI, Reports erythema, Denies rash and Denies wounds Neurologic: Reports Normal hearing present Psychiatric: Psychiatric: Reports no additional psychiatric complaints and Reports as per HPI Endocrine: Endocrine: Reports no additional endocrine complaints and Reports as per HPI Hematologic/Lymphatic: Hematologic/Lymphatic: Reports no additional hematologic/lymphatic complaints and Reports as per HPI Allergic/Immunologic: Allergic/Immunologic: Reports no additional allergic/immunologic complaints and Reports as per HPI [facility] Past Medical History Medical History Bipolar disorder, unspecified Cutaneous abscesses of both axillae Skin irritation Contact dermatitis Wound check, abscess Abdominal wall abscess Overweight with body mass index (BMI) of 26 to 26.9 in adult Pilonidal cyst Establishing care with new doctor, encounter for Breast cancer screening Cervical cancer screening Family History Family History Father Throat cancer Mother No problems noted. Social History Social History Housing: House Alcohol intake: current Alcohol intake frequency: a few times a week Alcohol type: beer Patient Tobacco Use Status: Never used Tobacco Smoked in Last 30 Days: No Substance Use Type: Crack/Cocaine Advance Directives: No Advance Directives Information Provided: No Do you have a plan to hurt others: No Plan service: No Current occupational status: employed Cognitive needs: No Hearing needs: No Vision needs: Yes (rx glasses) Physical Exam 2 Vital Signs: Vital Signs: Last Vital Signs Temp 98 F 12/02/24 08:44 Pulse 95 12/02/24 08:44 Resp 16 12/02/24 08:44 BP 118/87 12/02/24 08:44 Pulse Ox 96 12/02/24 08:44 O2 Del Method Room Air 12/02/24 08:44 BMI result Body Mass Index 28.2 Const: General: cooperative, comfortable and no acute distress O rientation/consciousness: patient oriented x3 Limitations: no limitations HEENT: Head: Yes normal to inspection, Yes normocephalic and Yes atraumatic Ears: hearing grossly normal bilaterally General nose exam: Normal external nose present Face and sinus: Yes normal facial exam Mouth: Normal oral and palatal mucosa present, oropharynx normal and moist mucous membranes Throat: Yes posterior oropharynx normal Eyes: General: appearance normal, both eyes and all related structures E yelids: Yes eyelids normal Conjunctivae: conjunctivae normal Sclerae: s clerae normal Pupils: Equal, round and reactive pupils present EOM: EOMs intact bilaterally Neck: Neck: Yes normal visual inspection, Yes full ROM and Yes no lymphadenopathy Lymphatic: no lymphadenopathy noted Chest: Chest palpation & inspection: normal inspection of the chest Resp: Effort & Inspection: normal respiratory effort and able to speak in complete sentences Auscultation: clear to auscultation bilaterally, no crackles, no rales, no rhonchi and no wheezes Cardio: Rate: regular rate Rhythm: regular rhythm Heart sounds: S1 normal heart sound present and S2 normal heart sound present GI: Inspection: Yes normal to inspection Skin: Other: Right buttock with indurated area noted around eschar, dried blood noted, not actively bleeding. No fluctuance, slight extending cellulitis noted outlined in purple marker. Does not extend into the perineum or into the genitalia. Tender to palpation. Neuro: General: patient oriented x3 and moves all extremities Cranial nerves: Yes Equal, round and reactive pupils present and Yes Normal hearing present Extrem: General: Yes normal to inspection Right upper extremity: normal to inspection Left upper extremity: normal to inspection Right lower extremity: normal to inspection Left lower extremity: normal to inspection Medications Administered Discontinued Medications Generic Name Dose Route Start Last Admin Trade Name Freq PRN Reason Stop Dose Admin Diphtheria/Tetanus/Acell Pertussis 0.5 ml 12/02/24 08:28 12/02/24 08:34 Diphth,Pertus(Acell),Tet Adult 0.5 Ml Syringe IM 12/02/24 08:29 0.5 ml .ONCE ONE Administration Ketorolac Tromethamine 30 mg 12/02/24 08:28 12/02/24 08:34 Ketorolac Tromethamine 30 Mg/Ml Vial IM 12/02/24 08:29 30 mg ONCE ONE Administration Medical Decision Making Medical Decision Making MDM Narrative: This is a 39-year-old female who presents emergency department with complaints of right buttock pain and redness for the last week and a half. On arrival vital signs within normal limits. She is speaking full sentences under no acute distress. Patient does have area of induration, no fluctuance, slightly warm, no drainage. At this time, this area is not ready to be excised and drained. I discussed the importance of using moist heat rather than warm heat multiple times per day, at least 6 times today. Started on doxycycline and Keflex. Updated tetanus in department. Medicated with Toradol. Also discharged on morphine for severe pain only. Advised patient to call the surgical office or she can follow-up in several days as she likely needs to have this excised and drained however it is not ready to be done today. Patient is agreeable. Patient given strict return precautions. Patient stable for discharge Differential Diagnosis Differential Diagnoses: The differential diagnosis associated with the presentation includes Abscess, cellulitis, cyst, contact dermatitis Discharge Plan Discharge Clinical Impression: Abscess Patient Disposition: Home, Self-Care Instructions: Abscess (ED) Additional Instructions: You were seen in the emergency department due to concerns for a skin infection. The area of the skin infection is very hard therefore we are unable to incise and drain as this would not produce a good result. It is very important that you use moist heat 5-6 times per day, warm soaks etc.. Do not pick at the wound as this can worsen your symptoms. I am also sending you a prescription for morphine, this is a strong narcotic pain medication. Please use sparingly for severe pain only. Please be advised that this can cause drowsiness, be addictive, ensure that you take this in a safe environment, do not drink alcohol or drive while taking this medication. We are unable to fill this medication through the emergency room. Please take prescribed antibiotic as directed, Keflex is to be taken 4 times a day, doxycycline to be taken twice a day. Finish the entire course even if your symptoms improve. You may have to return in 24-48 hours to have this excised and drained. I am also giving you a referral to a surgeon for further management. Call to make an appointment. Alternate between ibuprofen and or Tylenol as needed for pain and symptoms. Tylenol 1000 mg every 8 hours and ibuprofen 600mg every 6 hours as needed for pain. If any new or worsening symptoms occur including but not limited to high fevers, severe body aches, if the redness extends beyond the outlined area, please return for re-evaluation. Prescriptions: New ibuprofen 600 mg tablet 600 mg PO Q6H PRN (Reason: pain) Qty: 30 0RF doxycycline hyclate 100 mg capsule 100 mg PO BID 7 Days Qty: 14 0RF acetaminophen [Tylenol Extra Strength] 500 mg tablet 1,000 mg PO Q8H PRN (Reason: pain) Qty: 30 0RF cephalexin 500 mg capsule 500 mg PO QID 7 Days Qty: 28 0RF morphine 15 mg tablet 15 mg PO Q6H Qty: 5 0RF Rx Instructions: Partial Fill upon patient request. No Action gabapentin 100 mg capsule PO lamotrigine 150 mg tablet 150 mg PO BID Referrals: [facility] [place] General Surgeons [Provider Group, General Surgery] Stand Alone Forms: Work/School Release Discharge Date/Time: 12/02/24 08:45 Print Language: Latvian
[2024-12-02] MEDS: Diphth,Pertus(ACell),Tet Adult 0.5 ML SYRINGE IM (08:34)
[2024-12-02 08:44] VITALS: BP 118/87; PULSE 95; RESP 16; TEMP 36.6; O2SAT 96
== END 2024-12-02 08:45 | disposition home or self-care (01) ==
PROVIDERS: Emergency Provider Emergency Medicine; PCP Physician Assistant Medical
DX: L02.31 Cutaneous abscess of buttock (principal); Z23 Encounter for immunization; Z79.899 Other long term (current) drug therapy
CPT/HCPCS: 90471; 90715; 96372; 99284; J1885

== ENCOUNTER 2024-12-05 07:23 | Emergency (ER) | payer BC, SELFPAY ==
[2024-12-05 07:25] VITALS: BP 138/98; PULSE 99; RESP 16; TEMP 36.7; O2SAT 96; BMI 28.3
[2024-12-05 08:00] VITALS: BP 98/61; PULSE 76; RESP 16; TEMP 36.7; O2SAT 98
--- NOTE | 2024-12-05 08:41 | ED.SKABFB ---
HPI - Skin/Abscess/Foreign Bdy General Chief complaint: Skin/Abscess/Foreign Body Stated complaint: see 12/02 for abscess on R lower buttox Time Seen by Provider: 12/05/24 07:38 Source: patient, RN notes reviewed and old records reviewed Mode of arrival: ambulatory Limitations: no limitations History of Present Illness ED Provider: MANUELA Aguilar HPI narrative: 39-year-old female with medical history of bipolar disorder, recurrent abscesses presents to the ED due to a right buttock abscess that started approximately 2 weeks ago. Patient states she has a history of developing abscesses in various areas of her body. Patient saw a plush cutter on 11/28/2024 who gave the patient a steroid injection. Patient states this made the pain and swelling of the area much worse, and presented to [facility] on Monday12/02/2024 for intervention. During this visit, the provider who saw the patient started that the area was indurated and did not need any incision or draining at this time. Patient was started on Keflex and doxycycline for coverage of infection. Patient states swelling has gone down however she is still experiencing some pain extending into the right inner thigh. Patient has been compliant with antibiotic therapy, and using warm soaks and compresses on the abscess. Patient reports scant brownish drainage on bandages. Denies fevers, chills, nausea, vomiting, abdominal pain Related Data Home Medications ?Medication ?Instructions ?Recorded ?Confirmed gabapentin 100 mg capsule mg PO 08/20/24 11/21/24 lamotrigine 150 mg tablet 150 mg PO BID 08/20/24 11/21/24 Previous Rx's ?Medication ?Instructions ?Recorded acetaminophen 500 mg tablet 1,000 mg (2 x 500 mg) PO Q8H PRN 12/02/24 (Tylenol Extra Strength) pain #30 tabs cephalexin 500 mg capsule 500 mg PO QID 7 days #28 caps 12/02/24 doxycycline hyclate 100 mg capsule 100 mg PO BID 7 days #14 caps 12/02/24 ibuprofen 600 mg tablet 600 mg PO Q6H PRN pain #30 tabs 12/02/24 morphine 15 mg immediate release 15 mg PO Q6H #5 tabs 12/02/24 tablet morphine 15 mg immediate release 15 mg PO Q6H PRN pain #5 tabs 12/05/24 tablet Allergies Allergy/AdvReac Type Severity Reaction Status Date / Time No Known Allergies Allergy Verified 12/05/24 07:26 Review of Systems Review of Systems: CONST: Negative for fever, body aches and chills. HENT: Negative for neck pain/stiffness, headache, congestion, sore throat, swelling. EYES: Negative for discharge/pain or vision changes. RESP: Negative for cough/hemoptysis and shortness of breath. CV: Negative chest pain, difficulty breathing, palpitations. ABD: Negative pain, nausea, vomiting. : Negative increase frequency, dysuria, blood in urine or stool. MUSC: Negative for muscle aches, edema. SKIN: Negative rash, lesions/sores. POS R buttock abscess NEURO: Negative headache, dizziness, weakness. Yes all other systems are reviewed and are negative PMFSH Past Medical History Medical History Bipolar disorder, unspecified Cutaneous abscesses of both axillae Skin irritation Contact dermatitis Wound check, abscess Abdominal wall abscess Overweight with body mass index (BMI) of 26 to 26.9 in adult Pilonidal cyst Establishing care with new doctor, encounter for Breast cancer screening Cervical cancer screening Family History Family History Father Throat cancer Mother No problems noted. Social History Social History Housing: House Alcohol intake: current Alcohol intake frequency: a few times a week Alcohol type: beer Patient Tobacco Use Status: Never used Tobacco Substance Use Type: Crack/Cocaine Advance Directives: No Advance Directives Information Provided: Yes service: No Current occupational status: employed Cognitive needs: No Hearing needs: No Vision needs: Yes (rx glasses) Physical Exam Vital Signs: Vital Signs: Last Vital Signs Temp 98.1 F 12/05/24 08:00 Pulse 76 12/05/24 08:00 Resp 16 12/05/24 08:00 BP 98/61 12/05/24 08:00 Pulse Ox 98 12/05/24 08:00 O2 Del Method Room Air 12/05/24 08:00 BMI result Body Mass Index 28.3 GENERAL APPEARANCE: ?AxOx4, generally well-appearing, no acute distress. HEENT: ?NC, AT. MMM. EOMI, clear conjunctiva, oropharynx clear. NECK: ?Supple without lymphadenopathy.? No stiffness or restricted ROM. HEART:? Normal rate and regular rhythm, normal S1/S1, no m/r/g LUNGS:? CTAB, moving air well. No crackles or wheezes are heard. ABDOMEN: ?Soft, nontender, nondistended with good bowel sounds heard. BACK: No CVAT, no obvious deformity. EXTREMITIES: ?Without cyanosis, clubbing or edema. NEUROLOGICAL: ?Grossly nonfocal. Alert and oriented, moving all 4 extremities. Observed to ambulate with normal gait. Skin: ?Warm and dry without any rash. approximately 2cm healing abscess with granulation tissue and eschar, area is indurated, no warmth, with resolving erythema, no active drainage, no fluctuance. Medications Administered Discontinued Medications Generic Name Dose Route Start Last Admin Trade Name Freq PRN Reason Stop Dose Admin Bacitracin 1 appl 12/05/24 08:40 12/05/24 08:55 Bacitracin Oint 0.9 Gm Packet TOPICAL 12/05/24 08:41 1 appl ONCE ONE Administration Protocol Medical Decision Making Medical Decision Making [facility] Narrative: 39-year-old female with medical history of bipolar disorder, recurrent abscesses presents to the ED due to persistent right-sided buttock abscess that began approximately 2 weeks ago. Patient has been seen by Dermatology approximately 1 week ago who gave the patient a steroid injection. This injection may pain and swelling worse prompting patient to seek care in the ED on Saturday 12/02. Patient presents to the ED again today due to pain and concerns that the abscess is not healing. VS on initial observation-BP 98/61, pulse rate is 76, respiratory rate of 16, afebrile with oral temp of 98.1?. Physical exam reveals an approximately 2 cm while healing abscess with granulation tissue and eschar, abscesses indurated, not actively draining. On chart review I compared the pictures taken by the provider on Monday with the wound today which shows reduction of erythema and swelling of the buttock and thigh. Patient has been taking Keflex and doxycycline as prescribed. Patient without subjective fevers, afebrile department today with temperature of 98.1?. Patient was medicated in the department today with 30 mg IM ketorolac, 975 mg of Tylenol as she has not taken any analgesia today. Patient to be discharged with instructions to finish her antibiotics, I placed a purple chitimacha around the area and instructed patient to watch this daily and come back to the department if redness extends outside of the chitimacha. Patient is requesting for additional morphine medication as she was prescribed this on discharge Monday. Patient received 5 oral tablets. I will prescribe an additional 3 tablets for patient to manage pain at home we will abscess is healing. I counseled patient to follow up with her primary care provider to ensure resolution of symptoms. Patient is in agreement with the plan. Differential Diagnosis Differential Diagnoses: The differential diagnosis associated with the presentation includes Contact dermatitis Abscess Admission/Observation Consideration of admission/observation: Escalation of care including admission/observation considered External Record Review External record reviewed: Inpatient record, Office record and Outpatient record Prescription Management I considered prescription management with: Antibiotic (I considered antibiotics however patient already on Keflex and doxycycline for coverage with a well healing and resolving abscess) Chronic Conditions Patient?s care impacted by: Other (Bipolar disorder, recurrent abscesses) Discharge Plan Discharge Clinical Impression: Abscess of skin or subcutaneous tissue Patient Disposition: Home, Self-Care Additional Instructions: You were evaluated in the emergency department today due to concerns of skin infection. I compared the pictures that were taken this Monday when you were seen in the department to the wound today which shows a well-healing abscess and resolving erythema. I marge a new purple outline around the area, if you notice any redness approaching the line or coming outside of the line please report back to the emergency department for treatment. Please continue your antibiotics and finish them as directed. I will prescribe you an additional 5 tablets of oral morphine to manage her pain at home, you should only take this medication when having breakthrough or severe pain. Please manage this at home with 500 mg of Tylenol and 400 mg of ibuprofen every 6 hours. Continue to use warm moist heat on the abscess. Please follow up with your primary care doctor to ensure resolution of your symptoms. Please return to the emergency department if you experience fevers over 100.4?, chills, worsening pain of the buttock, redness that approaches the purple line or exceeds the purple line, excessive purulent drainage or any new/worsening/concerning symptoms. Prescriptions: New morphine 15 mg tablet 15 mg PO Q6H PRN (Reason: pain) Qty: 5 0RF Rx Instructions: Partial Fill upon patient request. No Action ibuprofen 600 mg tablet 600 mg PO Q6H PRN (Reason: pain) Qty: 30 0RF doxycycline hyclate 100 mg capsule 100 mg PO BID 7 Days Qty: 14 0RF acetaminophen [Tylenol Extra Strength] 500 mg tablet 1,000 mg PO Q8H PRN (Reason: pain) Qty: 30 0RF cephalexin 500 mg capsule 500 mg PO QID 7 Days Qty: 28 0RF morphine 15 mg tablet 15 mg PO Q6H Qty: 5 0RF Rx Instructions: Partial Fill upon patient request. gabapentin 100 mg capsule PO lamotrigine 150 mg tablet 150 mg PO BID Stand Alone Forms: Work/School Release Print Language: Polish
[2024-12-05 09:32] VITALS: BP 123/89; PULSE 70; RESP 16; TEMP 36.8; O2SAT 100
[2024-12-05 09:40] VITALS: BP 123/89; PULSE 70; RESP 16; TEMP 36.8; O2SAT 100
== END 2024-12-05 09:41 | disposition home or self-care (01) ==
PROVIDERS: Emergency Provider Emergency Medicine; PCP Physician Assistant Medical
DX: L02.31 Cutaneous abscess of buttock (principal); F31.9 Bipolar disorder, unspecified; Z79.899 Other long term (current) drug therapy
CPT/HCPCS: 96372; 99283; 99284; J1885

== ENCOUNTER 2024-12-26 16:06 | Outpatient (AMB) | payer BC, SELFPAY ==
--- NOTE | 2024-12-26 16:08 | A.OFFPC_ITS ---
Intake Visit Reasons: 1 month follow up Allergies No Known Allergies Allergy (Verified 12/26/24 16:17) Medication List - Last Reconciled 12/26/24 by Jenny Bustillo PA-C acetaminophen (Tylenol Extra Strength) 1,000 mg (2 x 500 mg) PO Q8H PRN cephalexin 500 mg PO QID 7 days doxycycline hyclate 100 mg PO BID 7 days gabapentin mg PO ibuprofen 600 mg PO Q6H PRN lamotrigine 150 mg PO BID morphine 15 mg PO Q6H PRN morphine 15 mg PO Q6H sodium hypochlorite 0.25% (Dakin's Solution) 1 appl topical Q24H Tobacco use date assessed: 09/13/24 Dental Screening Dental Screen Date: 09/13/24 HPI 1 month follow up HPI Details The patient is a 39-year-old female presenting with concerns regarding recurrent abscesses and a potential diagnosis of Hidradenitis Suppurativa. The patient reports a recent abscess that was injected with a steroid by a design director, which subsequently worsened, spreading correction down her thigh and requiring two emergency room visits. The abscess was initially too hard to drain but began draining spontaneously later. The patient has a history of similar lesions and is concerned about Hidradenitis Suppurativa, as she has a friend with the condition and recognizes similar symptoms. The patient has been prescribed doxycycline and Keflex, which she completed, and has been using a topical antibiotic. She has been advised to use Dakin's solution for wound care, which is described as a bleach-like skin belt cleaner. The patient is scheduled for an ultrasound to check for sinus tracts and has an upcoming appointment with general surgery. [facility] Medical History Skin abscess Hidradenitis suppurativa Bipolar disorder, unspecified Cutaneous abscesses of both axillae Skin irritation Contact dermatitis Wound check, abscess Abdominal wall abscess Overweight with body mass index (BMI) of 26 to 26.9 in adult Pilonidal cyst Establishing care with new doctor, encounter for Breast cancer screening Cervical cancer screening Family History Father Throat cancer Mother No problems noted. Social History Housing: House Alcohol intake: current Alcohol intake frequency: a few times a week Alcohol type: beer Patient Tobacco Use Status: Never used Tobacco Substance Use Type: Crack/Cocaine service: No Current occupational status: employed Cognitive needs: No Hearing needs: No Vision needs: Yes (rx glasses) Questionnaire Thrive Questionnaire Date Thrive assessed: 08/20/24 CHARLES-7 AMB Questionnaire CHARLES-7 Date CHARLES - 7 assessed: 08/20/24 Source: Developed by Drs. Julius Maria, Evelyn Dalton, René Farnsworth and colleagues, with an educational van from [employer] Review of Systems Const Details: - Integumentary: Reports recurrent abscesses, currently healing abscess on butto ck. All systems reviewed & are unremarkable except as noted in HPI and below Physical exam (Primary Care) Tobacco/Smoking Status: Tobacco use Status Tobacco use date assessed 09/13/24 12/26/24 16:08 Patient Tobacco Use Status Never used Tobacco 12/26/24 16:08 Thrive Assessment: Date of Thrive Assessment Date Thrive assessed 08/20/24 12/26/24 16:08 Telehealth Telehealth Telehealth Platform: Telephone Location of provider rendering services: practice address Location of patient: address on file Patient Identification confirmed using: Name, : Yes Telehealth method: voice only Patient verbally consented to treatment: Yes Patient verbally consented to billing insurance company: Yes Patient informed of any privacy concerns related to visit: Yes Minutes spent on Phone/Video with Pt.: 20 Coding Level of Care Code Tele Est Pt Level 4 (42905) Complex EM visit Add On G2211 Diagnoses Skin abscess L02.91 Hidradenitis suppurativa L73.2 Assessment & Plan Assessment & Plan (1) Skin abscess: Code(s): L02.91 - Cutaneous abscess, unspecified Category: Medical Plan: The patient has been experiencing recurrent abscesses, with the most recent one being injected with a steroid, which worsened the condition. She was treated with doxycycline and Keflex, and has been using a topical antibiotic. An ultrasound is planned to check for sinus tracts, and she has an appointment with general surgery for further evaluation. (2) Hidradenitis suppurativa: Code(s): L73.2 - Hidradenitis suppurativa Category: Medical Plan: The patient suspects Hidradenitis Suppurativa due to recurrent lesions and similarities with a friend's condition. She has been advised to use Dakin's solution for wound care and is considering further dermatological evaluation. Plan Plan Patient was informed and verbally consented to the use of an ambient scribe for clinic note documentation during this visit. 1. Abscess The patient has been experiencing recurrent abscesses, with the most recent one being injected with a steroid, which worsened the condition. She was treated with doxycycline and Keflex, and has been using a topical antibiotic. An ultrasound is planned to check for sinus tracts, and she has an appointment with general surgery for further evaluation. 2. Hidradenitis Suppurativa The patient suspects Hidradenitis Suppurativa due to recurrent lesions and similarities with a friend's condition. She has been advised to use Dakin's solution for wound care and is considering further dermatological evaluation. During the consultation, we discussed the patient's recurrent abscesses and the possibility of Hidradenitis Suppurativa. I explained that an ultrasound would be performed to check for sinus tracts and that she should continue using Dakin's solution for wound care. We also talked about the potential need for further dermatological evaluation and the upcoming general surgery appointment. I advised her on the importance of monitoring her symptoms and following up as needed. Orders: Orders US Extremity Nonvas Limited RT Today L73.2 - Hidradenitis suppurativa Erythrocyte Sedimentation Rate Today Z00.00 - Encounter for general adult medical examination without abnormal findings MRSA Nasal Screen Today L02.91 - Cutaneous abscess, unspecified Medications: New sodium hypochlorite 0.25% (Dakin's Solution) 1 appl topical Q24H 473 mL 3RF Patient Instructions: - Continue using Dakin's solution daily for wound care. - Attend the scheduled ultrasound and general surgery appointment. - Monitor symptoms and report any worsening or new lesions.
== END 2024-12-26 16:36 | disposition home or self-care (01) ==
PROVIDERS: PCP Physician Assistant Medical; Visit Provider Physician Assistant Medical
DX: L02.91 Cutaneous abscess, unspecified (principal); L73.2 Hidradenitis suppurativa

== ENCOUNTER 2025-01-01 15:29 | Outpatient (AMB) | payer BC, SELFPAY ==
--- NOTE | 2025-01-01 15:29 | A.OFFVIS_ITS ---
Vital Signs 01/01/25 15:30 Height 5 ft 3 in Weight 145 lb BMI 25.7 Intake Visit Reasons: recurring cyst Intake Note: This patient presents for an assessment for recurring cyst. Pt c/o: completed abx cephalexin 500mg, Doxy 100 mg, reports no draining, reports no fever or chills. ER visit: 12/05/2024 Title I Coordinator Required: No Accompanied by: Self / Same As Patient Allergies No Known Allergies Allergy (Verified 01/01/25 15:37) Medication List - Last Reconciled 01/01/25 by Antoine Rich MD acetaminophen (Tylenol Extra Strength) 1,000 mg (2 x 500 mg) PO Q8H PRN cephalexin 500 mg PO QID 7 days doxycycline hyclate 100 mg PO BID 7 days gabapentin mg PO ibuprofen 600 mg PO Q6H PRN lamotrigine 150 mg PO BID morphine 15 mg PO Q6H PRN morphine 15 mg PO Q6H sodium hypochlorite 0.25% (Dakin's Solution) 1 appl topical Q24H HPI HPI recurring cyst: Details: [age] year old female referred for cysts of the skin. She says that she has had skin cysts on different parts of her body many times now. Her last 1 was about a month ago when she had this cyst on the right buttock area that drained on its own. She was on antibiotics. She says that she was very swollen then but this has improved significantly She also has a history of a pilonidal cyst and had undergone surgery for this in the past She is wondering if she has ?hidradenitis?. She is not a diabetic. [facility] Medical History Skin abscess Hidradenitis suppurativa Bipolar disorder, unspecified Cutaneous abscesses of both axillae Skin irritation Contact dermatitis Wound check, abscess Abdominal wall abscess Overweight with body mass index (BMI) of 26 to 26.9 in adult Pilonidal cyst Establishing care with new doctor, encounter for Breast cancer screening Cervical cancer screening Family History Father Throat cancer Mother No problems noted. Social History Housing: House Alcohol intake: current Alcohol intake frequency: a few times a week Alcohol type: beer Patient Tobacco Use Status: Never used Tobacco Substance Use Type: Crack/Cocaine service: No Current occupational status: employed Cognitive needs: No Hearing needs: No Vision needs: Yes (rx glasses) Review of Systems Const Denies chills and Denies fever(s) Card Denies chest pain, Denies dyspnea and Denies dyspnea on exertion Resp Denies cough, Denies dyspnea and Denies dyspnea on exertion GI Denies hematochezia and Denies change in bowel habits Denies hematuria Musc Denies back pain and Denies limited range of motion Neuro Denies focal weakness and Denies convulsions Psych Denies depression and Denies mood swings Physical Exam Vital Signs: BMI result Body Mass Index 25.7 Const General: comfortable and no acute distress Orientation/consciousness: patient oriented x3 Neck Neck: Yes no lymphadenopathy Resp Auscultation: clear to auscultation bilaterally Cardio Rhythm: regular rhythm GI Palpation (GI): Soft to palpation, nontender and no guarding Back/Spine/Pelvis Other: Right buttock on the lower part is note of a small open wound, superficial that represents her previous cyst that drained spontaneously, no residual induration, no fluctuance or redness Neuro General: patient oriented x3 Assessment & Plan Assessment & Plan (1) Skin abscess: Code(s): L02.91 - Cutaneous abscess, unspecified Category: Medical Plan: She describes having skin abscess in the past requiring drainage. She also has a history of a pilonidal abscess Her last skin abscess was on the right buttock area and this drained spontaneously. Currently, there is no need to do any I and D It does not appear that she had hidradenitis of the area as these are single a reas of induration. It appears that she just has the skin cyst that her on various parts of her body There is no need to do an I and D currently Does not need to be on antibiotics at this time. I did tell her that if she has another infected cyst or abscess in the future, she can come to the office so we can re-evaluate. She is comfortable with the plan. Coding Level of Care Code New Pt Level 3 (14022) Diagnoses Skin abscess L02.91
[2025-01-01 15:30] VITALS: BMI 25.7
== END 2025-01-01 15:53 | disposition home or self-care (01) ==
LOC: HO.HGS 15:29
PROVIDERS: PCP Physician Assistant Medical; Visit Provider Surgery
DX: L02.91 Cutaneous abscess, unspecified (principal)
CPT/HCPCS: 99203

== ENCOUNTER 2025-01-13 08:57 | Emergency (ER) | payer BC, SELFPAY ==
[2025-01-13 08:59] VITALS: BP 127/77; PULSE 101; RESP 16; TEMP 36.7; O2SAT 97; BMI 25.8
--- NOTE | 2025-01-13 09:22 | ED_ITS ---
HPI - Skin/Abscess/Foreign Bdy General Chief complaint: Skin/Abscess/Foreign Body Stated complaint: abscess on L butt cheek Time Seen by Provider: 01/13/25 09:10 Source: patient, RN notes reviewed and old records reviewed Mode of arrival: ambulatory History of Present Illness ED Provider: Elizabeth Downs PA-C HPI narrative: 39-year-old female with a past medical history bipolar, multiple recurring abscesses/cysts, presenting to the ED complaining of painful abscess to left buttock x 3 days. Denies drainage from area. Denies fever, chills, difficulty or inability to have BM/urinate Related Data Home Medications ?Medication ?Instructions ?Recorded ?Confirmed gabapentin 100 mg capsule mg PO 08/20/24 01/01/25 lamotrigine 150 mg tablet 150 mg PO BID 08/20/2401/01 Previous Rx's ?Medication ?Instructions ?Recorded acetaminophen 500 mg tablet 1,000 mg (2 x 500 mg) PO Q 8H PRN 12/02/24 (Tylenol Extra Strength) pain #30 tabs cephalexin 500 mg capsule 500 mg PO QID 7 days #28 cap s 12/02/24 doxycycline hyclate 100 mg capsule 100 mg PO BID 7 day s #14 caps 12/02/24 ibuprofen 600 mg tablet 600 mg PO Q6H PRN pain #30 t abs 12/02/24 morphine 15 mg immediate release 15 mg PO Q6H #5 tabs 12/02/24 tablet morphine 15 mg immediate release 15 mg PO Q6H PRN pain #5 tabs 12/05/24 tablet sodium hypochlorite 0.25 % 1 appl topical Q24H #473 mL 12/26/24 solution (Dakin's Solution) cephalexin 500 mg capsule 500 mg PO QID 7 days #28 cap s 01/13/25 doxycycline hyclate 100 mg tablet 100 mg PO BID 7 days #14 tabs 01/13/25 Allergies Allergy/AdvReac Type Severity Reaction Status Date / Time No Known Allergies Allergy Verified 01/13/25 09:03 Review of Systems Review of Systems: Yes all other systems are reviewed and are negative Constitutional: Constitutional: Reports as per [facility] Past Medical History Attestation statement: The following information was validated with the patient. Source: old records reviewed Medical History Skin abscess Hidradenitis suppurativa Bipolar disorder, unspecified Cutaneous abscesses of both axillae Skin irritation Contact dermatitis Wound check, abscess Abdominal wall abscess Overweight with body mass index (BMI) of 26 to 26.9 in adult Pilonidal cyst Establishing care with new doctor, encounter for Breast cancer screening Cervical cancer screening Family History Family History Father Throat cancer Mother No problems noted. Social History Social History Housing: House Alcohol intake: current Alcohol intake frequency: a few times a week Alcohol type: beer Patient Tobacco Use Status: Never used Tobacco Substance Use Type: Crack/Cocaine Advance Directives: No Advance Directives Information Provided: No service: No Current occupational status: employed Cognitive needs: No Hearing needs: No Vision needs: Yes (rx glasses) Physical Exam Vital Signs: Vital Signs: Last Vital Signs Temp 98.0 F 01/13/25 09:45 Pulse 101 H 01/13/25 09:45 Resp 16 01/13/25 09:45 BP 127/77 01/13/25 09:45 Pulse Ox 97 01/13/25 09:45 O2 Del Method Room Air 01/13/25 09:45 BMI result Body Mass Index 25.8 Const: General: cooperative, healthy appearing and no acute distress Orientation/consciousness: patient oriented x3 Limitations: no limitations HEENT: Head: Yes normal to inspection and Yes atraumatic Ears: hearing grossly normal bilaterally General nose exam: Normal external nose present Face and sinus: Yes normal facial exam Eyes: General: appearance normal, both eyes and all related structures EOM: EOMs intact bilaterally Neck: Neck: Yes normal visual inspection and Yes no meningeal signs Resp: Effort & Inspection: normal respiratory effort and no respiratory distress Cardio: Rate: regular rate Skin: Other: + indurated abscess noted to left buttoc k with surrounding erythema. Warm to palpation. No fluctuance. No streaking. No perirectal/perianal involvement Neuro: General: patient oriented x3, tone normal and no meningeal signs Cranial nerves: Yes CN's II-XII intact bilaterally Gait exam (Neuro): Normal gait present Extrem: General: Yes normal to inspection Medical Decision Making Medical Decision Making MDM Narrative: 39-year-old female with a past medical history bipolar, multiple recurring abscesses/cysts, presenting to the ED complaining of painful abscess to left buttock x 3 days. On exam mildly tachycardic likely from discomfort, NAD, nontoxic appearing, physical exam as noted above. Indurated abscess noted to left buttock. No perianal/perirectal involvement. No I&D indicated at this time. No evidence of Faisal's gangrene Will initiate patient on p.o. antibiotics with close PCP follow-up. Please refer to course for remaining clinical decision making, interpretation of labs/imaging results, and discussions with consultants and/or family members. Results discussed with patient including worrisome signs and symptoms and strict return precautions, and when to return to the emergency department. They verbalized understanding and feel safe for discharge at this time. Differential Diagnosis Differential Diagnoses: The differential diagnosis associated with the presentation includes As above External Record Review External record reviewed: Inpatient record, Office record, Outpatient record, Prior outpatient labs, Prior outpatient radiology, Primary care record and Outside ED record Tests considered The following testing was considered but not selected: As above Prescription Management I considered prescription management with: Pain Medication and Antibiotic Chronic Conditions Patient?s care impacted by: Other Social Determinants Patient?s care significantly limited by Social Determinants of Health including: Other Social Determinant of Health Discharge Plan Discharge Clinical Impression: Abscess of skin or subcutaneous tissue, Cellulitis Patient Disposition: Home, Self-Care Instructions: Cellulitis (ED), Abscess (ED) Additional Instructions: You have an abscess to your left buttock with surrounding cellulitis. Doxycycline and Keflex are antibiotics please take as prescribed until completion Apply warm compresses If area begins to grow, becomes increasingly painful/swollen/worsen, you have difficulty having bowel movements or fever return to the ED immediately Please have close follow up with your primary care doctor Prescriptions: New cephalexin 500 mg capsule 500 mg PO QID 7 Days Qty: 28 0RF doxycycline hyclate 100 mg tablet 100 mg PO BID 7 Days Qty: 14 0RF No Action ibuprofen 600 mg tablet 600 mg PO Q6H PRN (Reason: pain) Qty: 30 0RF doxycycline hyclate 100 mg capsule 100 mg PO BID 7 Days Qty: 14 0RF acetaminophen [Tylenol Extra Strength] 500 mg tablet 1,000 mg PO Q8H PRN (Reason: pain) Qty: 30 0RF cephalexin 500 mg capsule 500 mg PO QID 7 Days Qty: 28 0RF morphine 15 mg tablet 15 mg PO Q6H Qty: 5 0RF Rx Instructions: Partial Fill upon patient request. morphine 15 mg tablet 15 mg PO Q6H PRN (Reason: pain) Qty: 5 0RF Rx Instructions: Partial Fill upon patient request. gabapentin 100 mg capsule PO lamotrigine 150 mg tablet 150 mg PO BID Dakin's Solution 0.25 % solution 1 appl topical Q24H Qty: 473 3RF Referrals: Jenny Bustillo PA-C [Primary Care Provider, Internal Medicine] - 1 week Stand Alone Forms: Work/School Release Interventions: ED Discharge Assessment Last Done: 01/13/25 09:45 Discharge Date/Time: 01/13/25 09:51 Print Language: Yemeni
[2025-01-13 09:45] VITALS: BP 127/77; PULSE 101; RESP 16; TEMP 36.7; O2SAT 97
== END 2025-01-13 09:51 | disposition home or self-care (01) ==
PROVIDERS: Emergency Provider Emergency Medicine; PCP Physician Assistant Medical
DX: L02.31 Cutaneous abscess of buttock (principal); L03.317 Cellulitis of buttock
CPT/HCPCS: 99282

== ENCOUNTER 2025-01-16 10:24 | Outpatient (AMB) | payer BC, SELFPAY ==
[2025-01-16 10:33] VITALS: BP 119/70; PULSE 97; TEMP 37.4; O2SAT 99; BMI 27.5
--- NOTE | 2025-01-16 10:33 | MHC.PC.OV ---
Vital Signs 01/16/25 10:33 Height 5 ft 3 in Weight 155 lb BMI 27.5 BP 119/70 Blood Pressure Location Lt brachial Position Sitting Pulse 97 Pulse Source Pulse Oximeter Temp 99.3 F Temp Source Temporal Artery Scan Pulse Oximetry (%) 99 Oxygen Delivery Method Room Air Intake Visit Reasons: ED follow up Accompanied by: Self / Same As Patient Allergies No Known Allergies Allergy (Verified 01/16/25 11:39) Medication List - Last Reconciled 01/16/25 by Jenny Bustillo PA-C acetaminophen (Tylenol Extra Strength) 1,000 mg (2 x 500 mg) PO Q8H PRN benztropine 0.5 mg PO BEDTIME cephalexin 500 mg PO QID 7 days clindamycin phosphate 1% topical DAILY doxycycline hyclate 100 mg PO BID 7 days gabapentin mg PO ibuprofen 600 mg PO Q6H PRN lamotrigine 200 mg PO .am lamotrigine 150 mg PO .pm oxycodone 5 mg PO Q8H PRN quetiapine 25 mg PO BEDTIME sodium hypochlorite 0.25% (Dakin's Solution) 1 appl topical Q24H Tobacco use date assessed: 01/16/25 Dental Screening Dental Screen Date: 01/16/25 Did you have a dental visit in the last 12 months?: Yes HPI ED follow up HPI Details The patient is a 39-year-old female presenting with recurrent abscesses and concerns about hidradenitis suppurativa. The patient reports a history of abscesses that began around July, with the most recent one starting on a Monday. She has experienced multiple abscesses over the past few months, with some requiring drainage and others resolving with antibiotics. The patient has been treated with Keflex and doxycycline, and has used Hibiclens for cleansing. The patient was evaluated by a surgeon who did not confirm hidradenitis suppurativa, as the lesions did not recur in the same location. Despite this, the patient describes lesions in the armpit resembling hidradenitis suppurativa. The patient has been advised to follow up with a wound care center for further management. Social History - Employment: The patient works but has expressed concerns about missing work due to her condition. - Living situation: Lives with boyfriend and his children, who are present a few times a week. [facility] Medical History (Updated 01/16/25 @ 11:44 by Jenny Bustillo PA-C) Cellulitis of left buttock Left buttock abscess Skin abscess Hidradenitis suppurativa Bipolar disorder, unspecified Cutaneous abscesses of both axillae Skin irritation Contact dermatitis Wound check, abscess Abdominal wall abscess Overweight with body mass index (BMI) of 26 to 26.9 in adult Pilonidal cyst Establishing care with new doctor, encounter for Breast cancer screening Cervical cancer screening Family History Father Throat cancer Mother No problems noted. Social History Housing: House Alcohol intake: current Alcohol intake frequency: a few times a week Alcohol type: beer Patient Tobacco Use Status: Never used Tobacco Substance Use Type: Crack/Cocaine service: No Current occupational status: employed Cognitive needs: No Hearing needs: No Vision needs: No Questionnaire PHQ-9 Over the last 2 weeks, how often have you been bothered by any of the following problems? 1. Little interest or pleasure in doing things: not at all 2. Feeling down, depressed, or hopeless: not at all 3. Trouble falling or staying asleep, or sleeping too much: not at all 4. Feeling tired or having little energy: not at all 5. Poor appetite or overeating: not at all 6. Feeling bad about yourself - or that you are a failure or have let yourself or your family down: not at all 7. Trouble concentrating on things, such as reading the newspaper or watching television: not at all 8. Moving or speaking so slowly that other people could have noticed. Or the opposite - being so fidgety or restless that you have been moving around a lot more than usual: not at all 9. Thoughts that you would be better off or of hurting yourself in some way: not at all Total score: 0 Depression Screening Interpretation: Negative Depression Screening Done: Yes 37696 - PHQ-9 Billing: Yes Source: Developed by Drs. Julius Maria, Evelyn Dalton, René Farnsworth and colleagues, with an educational van from [employer]. Thrive Questionnaire Date Thrive assessed: 01/16/25 I am a: Patient What is your living situation today?: I have a steady place to live Within the past 12 months, did the food you bought not last and you didn't have the money to get more?: Never true Within the past 12 months, did you worry whether your food would run out before you got money to buy more?: Never true Do you have trouble paying for medicines?: No Do you have trouble getting transportation to medical appointments?: No Do you have trouble paying your heating and electricity bill?: No Do you have trouble taking care of your child, family member or friend?: No Do you have trouble with day-to-day activities such as bathing, preparing meals, shopping, managing finances, etc.?: No Are you currently unemployed and looking for a job?: No Are you interested in more education?: No Please select the resources that you would like help with: None THRIVE Score: 0 AUDIT C Alcohol Use Questionnaire (AUDIT-C) 1. How often do you have a drink containing alcohol?: 4 or more times a week 2. How many drinks containing alcohol do you have on a typical day when you are drinking?: 1 or 2 3. How often do you have six or more drinks on one occasion?: Never Total Score: 4 Score Reviewed/Action Taken: No CHARLES-7 AMB Questionnaire CHARLES-7 Date CHARLES - 7 assessed: 01/16/25 Feeling nervous, anxious, or on edge: 0 = Not at all Not being able to stop or control worryin = Not at all Worrying too much about different things: 0 = Not at all Trouble relaxin = Not at all Being so restless that it is hard to sit still: 0 = Not at all Becoming easily annoyed or irritable: 0 = Not at all Feeling afraid as if something awful might happen: 0 = Not at all Total CHARLES-7 score (0-4 normal; 5-9 mild; 10-14 moderate; 15-21 severe): 0 Source: Developed by Drs. Julius Maria, Evelyn Dalton, René Farnsworth and colleagues, with an educational van from [employer] CHARLES-7 Assessment Billing CHARLES-7 Assessment Tool: CHARLES-7 Assessment 28703 Review of Systems Const Details: - Integumentary: Reports recurrent abscesses and lesions resembling hidradenitis suppurativa. All systems reviewed & are unremarkable except as noted in HPI and below Physical exam (Primary Care) Vital Signs: Last Vital Signs Temp 99.3 F 01/16/25 10:33 Pulse 97 01/16/25 10:33 BP 119/70 01/16/25 10:33 Pulse Ox 99 01/16/25 10:33 Oxygen Delivery Method Room Air 01/16/25 10:33 Care Plan Goal for BP management: <140/90 at Goal BMI result Body Mass Index 27.5 BMI Assessment/Plan discussion: High BMI High, discussed plan: lifestyle, weight reduction, dietary, physical activity, alcohol moderation and other Tobacco/Smoking Status: Tobacco use Status Tobacco use date assessed 01/16/25 01/16/25 10:43 Patient Tobacco Use Status Never used Tobacco 01/16/25 10:43 PHQ-9: PHQ-9 Score PHQ-9: Total score 0 01/16/25 10:43 Depression Screening Interpretation: Negative Thrive Assessment: Date of Thrive Assessment Date Thrive assessed 01/16/25 01/16/25 10:43 Const Other: Appearance: Alert. Oriented X3. No acute distress. Head: Normal external exam. Normocephalic. Atraumatic. Eyes: Pupils are equal, round, and reactive to light. Extraocular movements intact. Conjunctiva and sclera normal. Eyelids normal. Throat: Pharynx normal. Uvula midline. Moist mucous membranes. Neck: Normal inspection. Neck supple. Full range of motion. Cardiovascular: Normal heart rate and rhythm. Respiratory: No respiratory distress. Painless inspiration. Back: Full range of motion noted. Skin: Skin warm and dry. Normal skin color. Normal skin turgor. Fluctuant abscess with surrounding erythema minimal purulent drainage is noted. No streaking/foreign bodies/crepitus noted at this time. Extremities: No lower extremity edema. Extremities exhibit normal range of motion. Office Procedures Incision and Drainage Incision and drainage performed by: Jenny Bustillo Informed consent given: Yes Consent signed: Yes (Verbal consent) Time out checklist: patient, procedure, site marked/identified, positioning of patient, supplies available, allergies confirmed and team agrees on procedure Time out staff in room: Yes Time out verified: Yes Time out date: 01/16/25 Time out time: 10:00 Location: Left buttocks Anesthesia: local Incision with: #11 blade Drainage quality: purulent Probed cavity: Yes Culture taken: No Lesion: erythema, drainage, fluctuance and induration Lesion size (cm): 3 Hemostasis: pressure Cavity management: irrigated and packing Dressing: other (Nonadherent gauze, normal gauze, ABD pad with paper tape) Patient tolerated procedure: well Complications: No Flu Questionnaire Does the patient have a severe egg allergy?: No Does the patient have severe life threatening allergies?: No Does the patient have a fever or illness today?: No Has the patient ever had Guillain-Umbarger Syndrome?: No Has the patient ever had any past reaction to a flu shot?: No Immunizations Fluarix [id number] (PF) 45 mcg (15 mcg x 3)/0.5 mL IM syringe Performing Provider: Jenny Bustillo PA-C [place] [facility] [facility] Documented (not given) by: Jeanette Mcarthur CMA on 01/16/25 10:44 Reason Not Given: Patient Refused Coding Level of Care Code Est Pt Level 4 (60040) Complex EM visit Add On G2211 Diagnoses Left buttock abscess L02.31 Cellulitis of left buttock L03.317 Additional Codes PHQ-9 - 36668 - PHQ-9 Billing: Yes ([id number]) CHARLES-7 Assessment Billing - CHARLES-7 Assessment Tool: CHARLES-7 Assessment 06410 ([id number]) Time Spent (min) 65 Assessment & Plan Assessment & Plan (1) Left buttock abscess: Code(s): L02.31 - Cutaneous abscess of buttock Category: Medical Plan: Patient now status post incision and drainage of left buttocks abscess. Mild right amount of purulent drainage was excreted. Packing was placed. Dressing was placed. Patient tolerated procedure well. Patient to continue doxycycline and Keflex as prescribed by the emergency department. Will give oxycodone for pain for PRN. Will also refer to the wound clinic if she can not get into the Wound Clinic by Monday or Monday of next week she will return here Monday for wound check/packing removal. Work note given. (2) Cellulitis of left buttock: Code(s): L03.317 - Cellulitis of buttock Category: Medical Plan: Patient now status post incision and drainage of left buttocks abscess. Mild right amount of purulent drainage was excreted. Packing was placed. Dressing was placed. Patient tolerated procedure well. Patient to continue doxycycline and Keflex as prescribed by the emergency department. Will give oxycodone for pain for PRN. Will also refer to the wound clinic if she can not get into the Wound Clinic by Monday or Monday of next week she will return here Monday for wound check/packing removal. Work note given. Plan Plan Patient was informed and verbally consented to the use of an ambient scribe for clinic note documentation during this visit. 1. Abscess Patient now status post incision and drainage of left buttocks abscess. Mild right amount of purulent drainage was excreted. Packing was placed. Dressing was placed. Patient tolerated procedure well. Patient to continue doxycycline and Keflex as prescribed by the emergency department. Will give oxycodone for pain for PRN. Will also refer to the wound clinic if she can not get into the Wound Clinic by Monday or Monday of next week she will return here Monday for wound check/packing removal. Work note given. During the visit, we discussed the management of the patient's recurrent abscesses and the possibility of hidradenitis suppurativa. I advised the patient to continue her current antibiotic regimen and to follow up with a wound care center for further evaluation and management. Orders: Orders Influenza [id number] Immunization Today Z23 - Encounter for immunization Medications: New oxycodone Partial Fill upon patient request. 5 mg PO Q8H PRN 30 tabs 0RF pain Patient Instructions: - Continue taking Keflex and doxycycline as prescribed. - Follow up with the wound care center as advised. - Monitor for any new or worsening symptoms and seek medical attention if needed. - Maintain hygiene
== END 2025-01-16 11:15 | disposition home or self-care (01) ==
LOC: HO.HMCSH 10:24
PROVIDERS: PCP Physician Assistant Medical; Visit Provider Physician Assistant Medical
DX: L02.31 Cutaneous abscess of buttock (principal); L03.317 Cellulitis of buttock; Z23 Encounter for immunization

== ENCOUNTER → 2025-01-16 10:24 | Outpatient (BNVA) | payer BC, SELFPAY | PROVIDERS: PCP Physician Assistant Medical; Visit Provider Physician Assistant Medical | DX: L02.31 Cutaneous abscess of buttock (principal); L03.317 Cellulitis of buttock; Z28.21 Immunization not carried out because of patient refusal | CPT/HCPCS: 90471; 96127 ==

== ENCOUNTER 2025-01-20 11:33 | Outpatient (AMB) | payer BC, SELFPAY ==
[2025-01-20 11:27] VITALS: BP 116/70; PULSE 92; RESP 14; TEMP 36.4; O2SAT 99; BMI 26.2
--- NOTE | 2025-01-20 11:27 | A.OFFPC_ITS ---
Vital Signs 01/20/25 11:27 Height 5 ft 3.39 in Weight 150 lb BMI 26.2 BP 116/70 Respiration 14 Pulse 92 Pulse Source Pulse Oximeter Temp 97.6 F Temp Source Temporal Artery Scan Pulse Oximetry (%) 99 Oxygen Delivery Method Room Air Intake Visit Reasons: Wound check Wait Staff Required: No Accompanied by: Self / Same As Patient Allergies No Known Allergies Allergy (Verified 01/20/25 13:06) Medication List - Last Reconciled 01/20/25 by Jenny Bustilol PA-C acetaminophen (Tylenol Extra Strength) 1,000 mg (2 x 500 mg) PO Q8H PRN benztropine 0.5 mg PO BEDTIME cephalexin 500 mg PO QID 7 days clindamycin phosphate 1% topical DAILY doxycycline hyclate 100 mg PO BID 7 days gabapentin mg PO ibuprofen 600 mg PO Q6H PRN lamotrigine 200 mg PO .am lamotrigine 150 mg PO .pm oxycodone 5 mg PO Q8H PRN quetiapine 25 mg PO BEDTIME Tobacco use date assessed: 01/20/25 Dental Screening Dental Screen Date: 01/16/25 HPI Wound check HPI Details 39-year-old female presenting to the [facility] for wound check/packing removal. She had an abscess to her left buttocks that had an incision and drainage performed by myself on 01/16/2025. She had packing placed. She was sent home with doxycycline and Keflex taking as prescribed. She was referred to the Wound Center although they have not called her back for an appointment. She reports the wound is improving. She denies any fevers, chills. Reports only mild bloody drainage denies any purulent drainage or foul odor or worsening pain or streaking at this time. She denies any other symptoms complaints or concerns at this time. [facility] Medical History Cellulitis of left buttock Left buttock abscess Skin abscess Hidradenitis suppurativa Bipolar disorder, unspecified Cutaneous abscesses of both axillae Skin irritation Contact dermatitis Wound check, abscess Abdominal wall abscess Overweight with body mass index (BMI) of 26 to 26.9 in adult Pilonidal cyst Establishing care with new doctor, encounter for Breast cancer screening Cervical cancer screening Family History Father Throat cancer Mother No problems noted. Social History Housing: House Alcohol intake: current Alcohol intake frequency: a few times a week Alcohol type: beer Patient Tobacco Use Status: Never used Tobacco Substance Use Type: Crack/Cocaine service: No Current occupational status: employed Cognitive needs: No Hearing needs: No Vision needs: No Questionnaire PHQ-9 Over the last 2 weeks, how often have you been bothered by any of the following problems? 1. Little interest or pleasure in doing things: not at all 2. Feeling down, depressed, or hopeless: not at all 3. Trouble falling or staying asleep, or sleeping too much: not at all 4. Feeling tired or having little energy: not at all 5. Poor appetite or overeating: not at all 6. Feeling bad about yourself - or that you are a failure or have let yourself or your family down: not at all 7. Trouble concentrating on things, such as reading the newspaper or watching television: not at all 8. Moving or speaking so slowly that other people could have noticed. Or the opposite - being so fidgety or restless that you have been moving around a lot more than usual: not at all 9. Thoughts that you would be better off or of hurting yourself in some way: not at all Total score: 0 Depression Screening Interpretation: Negative Depression Screening Done: Yes 31684 - PHQ-9 Billing: Yes Source: Developed by Drs. Julius Maria, Evelyn Dalton, René Farnsworth and colleagues, with an educational van from [employer]. Thrive Questionnaire Date Thrive assessed: 01/16/25 I am a: Patient What is your living situation today?: I have a steady place to live Within the past 12 months, did the food you bought not last and you didn't have the money to get more?: Never true Within the past 12 months, did you worry whether your food would run out before you got money to buy more?: Never true Do you have trouble paying for medicines?: No Do you have trouble getting transportation to medical appointments?: No Do you have trouble paying your heating and electricity bill?: No Do you have trouble taking care of your child, family member or friend?: No Do you have trouble with day-to-day activities such as bathing, preparing meals, shopping, managing finances, etc.?: No Are you currently unemployed and looking for a job?: No Are you interested in more education?: No Please select the resources that you would like help with: None THRIVE Score: 0 AUDIT C Alcohol Use Questionnaire (AUDIT-C) 1. How often do you have a drink containing alcohol?: 4 or more times a week 2. How many drinks containing alcohol do you have on a typical day when you are drinking?: 1 or 2 3. How often do you have six or more drinks on one occasion?: Never Total Score: 4 Score Reviewed/Action Taken: No CHARLES-7 AMB Questionnaire CHARLES-7 Date CHARLES - 7 assessed: 01/16/25 Feeling nervous, anxious, or on edge: 0 = Not at all Not being able to stop or control worryin = Not at all Worrying too much about different things: 0 = Not at all Trouble relaxin = Not at all Being so restless that it is hard to sit still: 0 = Not at all Becoming easily annoyed or irritable: 0 = Not at all Feeling afraid as if something awful might happen: 0 = Not at all Total CHARLES-7 score (0-4 normal; 5-9 mild; 10-14 moderate; 15-21 severe): 0 Source: Developed by Drs. Julius Maria, Evelyn Dalton, René Farnsworth and colleagues, with an educational van from [employer]. CHARLES-7 Assessment Billing CHARLES-7 Assessment Tool: CHARLES-7 Assessment 50707 Review of Systems Const Details: Patient denies any fevers, chills, purulent drainage, foul odor or spreading rash or any other symptoms complaints or concerns at this time. All systems reviewed & are unremarkable except as noted in HPI and below Physical exam (Primary Care) Vital Signs: Last Vital Signs Temp 97.6 F 01/20/25 11:27 Pulse 92 01/20/25 11:27 Resp 14 01/20/25 11:27 BP 116/70 01/20/25 11:27 Pulse Ox 99 01/20/25 11:27 Oxygen Delivery Method Room Air 01/20/25 11:27 BMI result Body Mass Index 26.2 Tobacco/Smoking Status: Tobacco use Status Tobacco use date assessed 01/20/25 01/20/25 11:28 Patient Tobacco Use Status Never used Tobacco 01/20/25 11:28 PHQ-9: PHQ-9 Score PHQ-9: Total score 0 01/20/25 11:45 Depression Screening Interpretation: Negative Thrive Assessment: Date of Thrive Assessment Date Thrive assessed 01/16/25 01/20/25 11:28 Const Other: Appearance: Alert. Oriented X3. No acute distress. Head: Normal external exam. Normocephalic. Atraumatic. Eyes: Pupils are equal, round, and reactive to light. Extraocular movements intact. Conjunctiva and sclera normal. Eyelids normal. Throat: Pharynx normal. Uvula midline. Moist mucous membranes. Neck: Normal inspection. Neck supple. Full range of motion. Cardiovascular: Normal heart rate and rhythm. Heart sound normal. No murmurs noted. Pulses normal throughout. Respiratory: No respiratory distress. Painless inspiration. Back: Full range of motion noted. Skin: Skin warm and dry. Normal skin color. To left buttocks wound noted with packing in place. There is no purulent drainage noted only serosanguineous drainage. No spreading erythema, streaking, foul odor, foreign bodies noted at this time. Wound appears to be improving. Extremities: Extremities exhibit normal range of motion. Neuro: Oriented X 3. No motor deficit. No sensory deficit. Reflexes normal. Coding Level of Care Code Est Pt Level 4 (48332) Complex EM visit Add On G2211 Diagnoses Wound check, abscess Z51.89 Additional Codes CHARLES-7 Assessment Billing - CHARLES-7 Assessment Tool: CHARLES-7 Assessment 48500 ([id number]) PHQ-9 - 65780 - PHQ-9 Billing: Yes ([id number]) Assessment & Plan Assessment & Plan (1) Wound check, abscess: Code(s): Z51.89 - Encounter for other specified aftercare Category: Medical Plan: Packing was removed. Wound was cleaned with normal saline. No purulent drainage although wound was repacked due to depth of the wound. Dressing placed. Patient tolerated procedure well no complications. Patient to return either here or the Wound Clinic in 3 days for wound check/packing removal. Plan Packing was removed. Wound was cleaned with normal saline. No purulent drainage although wound was repacked due to depth of the wound. Dressing placed. Patient tolerated procedure well no complications. Patient to return either here or the Wound Clinic in 3 days for wound check/packing removal.
== END 2025-01-20 12:09 | disposition home or self-care (01) ==
LOC: HO.HMCSH 11:33
PROVIDERS: PCP Physician Assistant Medical; Visit Provider Physician Assistant Medical
DX: Z51.89 Encounter for other specified aftercare (principal)

== ENCOUNTER → 2025-01-20 11:33 | Outpatient (BNVA) | payer BC, SELFPAY | PROVIDERS: PCP Physician Assistant Medical; Visit Provider Physician Assistant Medical | DX: L02.31 Cutaneous abscess of buttock (principal); Z09 Encounter for follow-up examination after completed treatment for conditions other than malignant neoplasm | CPT/HCPCS: 96127 ==

== ENCOUNTER 2025-03-05 14:48 | Outpatient (REF) | payer BC, SELFPAY ==
[2025-03-06 09:43] LABS: MRSA Nasal PCR NEGATIVE (Negative); SA Nasal PCR NEGATIVE (Negative)
== END 2025-03-05 14:49 | disposition home or self-care (01) ==
LOC: HO.LAB 14:48
PROVIDERS: Visit Provider Physician Assistant Medical
DX: Z22.322 Carrier or suspected carrier of Methicillin resistant Staphylococcus aureus (principal)
CPT/HCPCS: 87640; 87641